=== PATIENT | male | born 1955 | race Caucasian/White ===

== ENCOUNTER 2020-12-22 08:49 | Outpatient (REF) | payer MEDICARE, SELFPAY ==
--- NOTE | ~2020-12-22 | US_ITS ---
EXAMINATION: US ABDOMEN COMPLETE CLINICAL INFORMATION: Right upper quadrant pain. COMPARISON: None TECHNIQUE: Real-time imaging of the abdominal viscera. FINDINGS: PANCREAS: Normal. ABDOMINAL AORTA: The proximal, mid, and distal segments are normal in caliber. INFERIOR VENA CAVA: Visualized portions are normal. LIVER: Normal. The liver is normal in size. The liver contour is normal. Parenchymal echogenicity is normal. No focal hepatic lesion. There is no intrahepatic biliary duct dilatation seen. GALLBLADDER: Gallbladder wall thickness is 0.27 cm. The gallbladder is physiologically distended without evidence of stones, sludge, polyps, wall thickening or pericholecystic fluid. COMMON BILE DUCT: Normal in caliber measuring 0.4 cm in diameter. RIGHT KIDNEY: Normal. No hydronephrosis. No renal calculi or focal parenchymal lesions. The kidney measures 10 point cm in maximum dimension. LEFT KIDNEY: Normal. No hydronephrosis. No renal calculi or focal parenchymal lesions. The kidney measures 10.3 cm in maximum dimension. SPLEEN: Normal. The spleen measures 10.5 cm in maximum dimension. FREE FLUID: None. US/US abdomen complete IMPRESSION: Unremarkable ultrasound abdomen complete
== END 2020-12-22 08:50 | disposition home or self-care (01) ==
LOC: HO.US 08:49
PROVIDERS: PCP Registered Nurse; Visit Provider Registered Nurse
DX: R10.11 Right upper quadrant pain (principal); R10.9 Unspecified abdominal pain; R19.5 Other fecal abnormalities
CPT/HCPCS: 76700

== ENCOUNTER → 2021-10-12 09:47 | Outpatient (BNVA) | payer MEDICARE, SELFPAY | PROVIDERS: PCP Registered Nurse; Referring Provider Registered Nurse; Visit Provider Surgery | DX: Z12.11 Encounter for screening for malignant neoplasm of colon (principal) | CPT/HCPCS: 99202 ==

== ENCOUNTER 2021-11-20 06:19 | Day surgery (SDC) | payer MEDICARE, SELFPAY ==
[2021-11-11 15:01] VITALS: BMI 21.7
--- NOTE | 2021-11-19 13:02 | HO.ANESPROP2 ---
Documented by User: Callie Singh NP 11/19/21 13:03 HPI - Anesthesia Eval Consult details Narrative: 65yo M for Colonoscopy, Poss Polypectomy PMFSH Active Problems Active Problems: All Active Problems (Updated 11/11/21 @ 15:00 by Concepción Casas, RN) Colon cancer screening (Acute) Past Medical History Medical History Colon cancer screening GERD (gastroesophageal reflux disease) H/O urinary frequency Family History Family History Father Prostate cancer Sister Liver cancer Surgical History Surgical History Hx of colonoscopy Social History Social History Alcohol intake: current Alcohol intake frequency: holidays/special occasions only Patient Tobacco Use Status: Never used Tobacco Use of substances other than those prescribed or required for medical reasons: No Are you DNR?: No Advance Directives: No Advance Directives Information Provided: Yes Advance Directives on File: No Poor oral hygiene: No Meds Allergies Allergy/AdvReac Type Severity Reaction Status Date / Time No Known Allergies Allergy Verified 11/11/21 15:01 Home Medications Medication Instructions Recorded Confirmed Last Taken Type fluticasone propionate 50 1 spray INTRANASAL BID 10/12/21 11/11/21 Unknown History mcg/actuation nasal spray,suspension multivitamin 1 tab PO DAILY 10/12/21 11/11/21 Unknown History omeprazole 20 mg capsule,delayed 20 mg PO DAILY 10/12/21 11/11/21 Unknown History release polyethylene glycol 3350 17 17 g PO DAILY 10/12/21 10/12/21 Unknown History gram/dose oral powder sennosides 8.6 mg tablet (Senna 17.2 mg PO DAILY PRN 10/12/21 10/12/21 Unknown History Laxative) tamsulosin 0.4 mg capsule 0.4 mg PO DAILY 10/12/21 11/11/21 Unknown History Exam Exam Date and Time: November 19, 2021 1302 Height,Weight and Vital Signs: Height 5 ft 3 in Weight 55.792 kg Assessment and Plan Assessment Anesthesia Assessment: Chart Reviewed Documented by User: Addie Xie MD 11/20/21 08:43 PMF Past Medical History Medical History Colon cancer screening GERD (gastroesophageal reflux disease) H/O urinary frequency Family History Family History Father Prostate cancer Sister Liver cancer Surgical History Surgical History Hx of colonoscopy History of Problems with Anesthesia: No Social History Social History Alcohol intake: current Alcohol intake frequency: holidays/special occasions only Patient Tobacco Use Status: Never used Tobacco Use of substances other than those prescribed or required for medical reasons: No Are you DNR?: No Advance Directives: No Advance Directives Information Provided: Yes Advance Directives on File: No Poor oral hygiene: No Meds Allergies Allergy/AdvReac Type Severity Reaction Status Date / Time No Known Allergies Allergy Verified 11/11/21 15:01 Home Medications Medication Instructions Recorded Confirmed Last Taken Type fluticasone propionate 50 1 spray INTRANASAL BID 10/12/21 11/11/21 Unknown History mcg/actuation nasal spray,suspension multivitamin 1 tab PO DAILY 10/12/21 11/11/21 Unknown History omeprazole 20 mg capsule,delayed 20 mg PO DAILY 10/12/21 11/11/21 Unknown History release polyethylene glycol 3350 17 17 g PO DAILY 10/12/21 10/12/21 Unknown History gram/dose oral powder sennosides 8.6 mg tablet (Senna 17.2 mg PO DAILY PRN 10/12/21 10/12/21 Unknown History Laxative) tamsulosin 0.4 mg capsule 0.4 mg PO DAILY 10/12/21 11/11/21 Unknown History Exam Airway Mallampati Class: II Neck ROM: Full Loose/Missing/Broken Teeth: No Heart: RRR Lungs: CTA Assessment and Plan Assessment Anesthesia Assessment: Anesthesia Plan Discussed Final Anesthetic Review History of Problems with Anesthesia: No NPO: Yes ASA Class: II Final Preanesthetic Review: Meds/Allgs Chart Reviewed, Consent Obtained/Reviewed and Anes Risks/Benef Reviewed Patient Risk: Low Procedure Risk: Low Anesthetic Plan Anesthetic Plan: MAC: Disposition: Standard PACU
[2021-11-20 07:11] VITALS: BP 119/68; PULSE 69; RESP 16; TEMP 36.5; O2SAT 97
[2021-11-20] MEDS: Lactated Ringers 1,000 ML 100 ML IVCONT (07:19)
--- NOTE | 2021-11-20 07:26 | MHC.SHP ---
Pre-Procedural Eval Section A Date of Service: 11/20/21 Section B Chief Complaint: Screening Details of Present Illness: last colonoscopy was in 2009, no GI complaints Relevant Family History (Specify if Yes): No Relevant Social History: None Present Medications: see Short Stay Collaborative assessment Medical History: Significant History ( BPH, GERD) History of Previous Operations: Relevant previous surgery/procedure and date(s) Allergies: Allergies Allergy/AdvReac Type Severity Reaction Status Date / Time No Known Allergies Allergy Verified 11/11/21 15:01 Review of Systems Sugical H&P ROS: Negative: Constitution, Cardiovascular, Respiratory, Neurological, Psychiatric, Hem-Onc, Allergic/Immunologic, Gastrointestinal, Genitourinary, Musculoskeletal, Integumentary, Endocrine and Eyes/Ears/Nose/Throat Exam Surgical H&P Exam: Normal: HEENT, Normal: Heart, Normal: Lungs, Normal: Extremities, Normal: Abdomen, Normal: Skin and Normal: Neurological Plan I have reviewed the history and physical and performed a pertinent physical examination on my patient. No changes have occurred unless specified.
--- NOTE | 2021-11-20 09:07 | W.PM.OPN ---
Operative Note Operative Note Date of Service: 11/20/21 Narrative: Preop diagnosis: Colon cancer screening Postop diagnosis: 1. moderate to severe diverticulosis, sigmoid and left colon 2. Multiple mucosal tears in the right colon along with erythema 3. suboptimal bowel prep surgeon: Bj Yañez MD The patient is a 65-year-old male referred for screening colonoscopy. He had his colonoscopy in 2009. He describes some chronic left-sided lower abdominal pain. He understood the technique of colonoscopy is also risks, benefits, and alternatives He was brought to the operating room placed in left lateral decubitus position under monitored anesthesia care. A full digital rectal was done. There were no palpable anal lesions. The tip of the Olympus was gently introduced through the anal orifice this and advanced with insufflation all the way to the cecum. We had a little bit of difficulty traversing the sigmoid because of severe diverticulosis. Onve we reached the right colon I noted linear mucosal tears diffusely with some erythema. We were able to reach the cecum. This was examined carefully. There were no lesions seen. This was identified via visualization of the ileocecal valve and the appendiceal orifice. The cecal mucosa was unremarkable so we proceeded to continue with the scope with careful examination of the the rest of the colonic mucosa being done with scope withdrawal. We did random biopsies of the right colon in view of the presence of erythema and official mucosal and tears. It is noted that these were already sent even before us reaching the colon itself. We continued to withdrawal the scope with careful examination of the entire colonic mucosa. Patient had suboptimal bowel prep with note of significant amounts of thick turbid stool throughout the colon. It was unlikely that any large lesion may have been missed Again there was note of heavy diverticulosis in the sigmoid in the left colon The rectum was reached and there were no lesions seen. The anal canal was unremarkable. The scope was then withdrawn completely. The patient tolerated The procedure well. There were no complication noted. In view of his suboptimal bowel prep as well as pending on his path report, I would recommend another colonoscopyin the next 1-2 years.
[2021-11-20 09:12] VITALS: BP 116/71; PULSE 77; RESP 18; TEMP 36.2; O2SAT 95
[2021-11-20 09:27] VITALS: BP 132/72; PULSE 80; RESP 16; TEMP 36.2; O2SAT 98
== END 2021-11-20 09:56 | disposition home or self-care (01) ==
PROVIDERS: PCP Internal Medicine; Visit Provider Surgery
PROC: 0DJD8ZZ Inspection of Lower Intestinal Tract, Via Natural or Artificial Opening Endoscopic (ICD-10-PCS; CPT 45378; principal; 2021-11-20 08:20)
DX: Z12.11 Encounter for screening for malignant neoplasm of colon (principal); K57.30 Diverticulosis of large intestine without perforation or abscess without bleeding; K52.9 Noninfective gastroenteritis and colitis, unspecified; K21.9 Gastro-esophageal reflux disease without esophagitis; Z79.899 Other long term (current) drug therapy
CPT/HCPCS: 45380; 88305; J2405

== ENCOUNTER 2022-02-23 13:26 | Outpatient (AMB) | payer MEDICARE, SELFPAY ==
--- NOTE | 2022-02-23 13:45 | A.OFFVIS_ITS ---
Intake Intake Visit Reasons: BPH was DrYarely Morales Patient Allergies No Known Allergies Allergy (Verified 02/23/23 13:22) HPI HPI Comments History of Present Illness Details Charlie is a pleasant male. He is a patient of Dr.Vergel Burton. He seen for the following urologic conditions - lower urinary tract symptoms Lower urinary tract symptoms PVR 0 cc Current therapy tamsulosin Primary symptoms of nocturia with weakness of stream PSA 08/03 1.1 Continue surveillance PFSH Medical History Colon cancer screening GERD (gastroesophageal reflux disease) H/O urinary frequency Rectal bleeding Surgical History History of prostate surgery Hx of colonoscopy Family History Father Prostate cancer Sister Liver cancer Social History Alcohol intake: current Alcohol intake frequency: holidays/special occasions only Patient Tobacco Use Status: Never used Tobacco Review of Systems Const Denies chills and Denies fever(s) Card Reports no additional complaints and Denies syncope Resp Denies cough GI Denies abdominal pain and Denies heartburn Reports as per HPI and Denies change in libido Neuro Denies syncope Psych Denies change in libido Endo Denies change in libido Physical Exam Const General: cooperative, healthy appearing, comfortable and no acute distress Orientation/consciousness: patient oriented x3 HEENT Face and sinus: Yes normal facial exam Mouth: moist mucous membranes Neck Neck: Yes normal visual inspection, Yes full ROM and Yes trachea midline Chest Chest palpation & inspection: normal inspection of the chest Resp Effort & Inspection: normal respiratory effort, able to speak in complete sentences and no respiratory distress GI Inspection: Yes normal to inspection Back/Spine/Pelvis Cervical Spine: normal cervical lordosis Thoracic/Lumbar Spine: thoracic and lumbar spine normal to inspection Skin General skin exam: no rashes or lesions noted Neuro General: patient oriented x3, gait normal, tone normal and moves all extremities Extrem General: Yes normal to inspection and Yes capillary refill normal Office Procedures Post Void Residual Post Residual Void Post Void Residual (PVR): 0 60154-Figm Void Residual by ultrasound Assessment & Plan Assessment & Plan (1) Nocturia more than twice per night: Code(s): R35.1 - Nocturia (2) BPH w urinary obs/LUTS: Code(s): N40.1 - Benign prostatic hyperplasia with lower urinary tract symptoms; N13.8 - Other obstructive and reflux uropathy Plan Twelve month follow-up Orders: Orders AMB Post Void Residual by ultrasound 02/23/22 N40.0 - Benign prostatic hyperplasia without lower urinary tract symptoms AMB Urinalysis Automated 02/23/22 Z13.9 - Encounter for screening, unspecified Patient Instructions: Imaging studies, laboratory and physical exam results were discussed and reviewed in detail. No major barriers to patient understanding were identified. An opportunity to ask questions regarding the treatment plan was provided. All questions were answered. The patient expressed understanding and agreement with the above treatment plan. The patient is aware they should contact our office by phone for worsening of their current condition or the appearance of new urologic symptoms. Compliance is encouraged with any medications and followup testing that is ordered. It is a privilege to participate in the urologic care of your patient. If you have any questions or concerns regarding treatment for the above conditions, or other urologic issues, please do not hesitate to contact me. The office telephone contact is [phone]. This note is constructed using voice recognition software. While every effort has been made to ensure accuracy university administrative assistant errors may have been included. Yours sincerely, Dr Ryan Simeon MD, [facility] - Urology Providers of Expert, Compassionate Care for the Genitourinary System Coding Level of Care Code Est Pt Level 4 (37861) Diagnoses Nocturia more than twice per night R35.1 BPH w urinary obs/LUTS N40.1; N13.8 CPT Codes Post Residual Void - PVR CPT Code: 16428-Etsl Void Residual by ultrasound ([id number])
== END 2022-02-23 14:34 | disposition home or self-care (01) ==
PROVIDERS: PCP Nurse Practitioner; Visit Provider Urology
DX: N40.1 Benign prostatic hyperplasia with lower urinary tract symptoms (principal); R35.1 Nocturia; N13.8 Other obstructive and reflux uropathy
CPT/HCPCS: 99499

== ENCOUNTER → 2022-02-23 13:26 | Outpatient (BNVA) | payer MEDICARE, SELFPAY | PROVIDERS: PCP Nurse Practitioner; Visit Provider Urology | DX: Z13.89 Encounter for screening for other disorder (principal) | CPT/HCPCS: 51798 ==

== ENCOUNTER 2022-10-12 10:27 | Outpatient (REF) | payer MEDICARE, SELFPAY ==
--- NOTE | ~2022-10-12 | CT_ITS ---
EXAMINATION: CT ABDOMEN AND PELVIS WITH CONTRAST CLINICAL INFORMATION: Left lower quadrant pain/hemorrhage of the anus and rectum. COMPARISON: None TECHNIQUE: Multidetector volumetric images were obtained from the superior aspect of the liver through the pubic symphysis following administration 85 mL of Omnipaque 350 intravenous contrast. Sagittal and coronal reformatted images were obtained on the technologist's workstation. Oral contrast: No This CT examination was performed using dose optimization techniques as appropriate, variously including the following: *Automated exposure control *Adjustment of mA and/or kV according to patient size (this includes techniques or standardized protocols for targeted exams where dose is matched to indication/reason for exam; i.e. extremities or head) *Use of iterative reconstruction technique DLP: 208 mGy-cm FINDINGS: LUNG BASES: The visualized lung bases are unremarkable. LIVER, GALLBLADDER, AND BILIARY TREE: The liver is normal in size, shape, and attenuation. No focal hepatic lesion or biliary ductal dilatation is present. There is a large dependent 8 mm gallstone without wall thickening. The gallbladder is contracted. PANCREAS: Unremarkable. SPLEEN: Unremarkable. ADRENAL GLANDS: Unremarkable. KIDNEYS AND URETERS: The kidneys are normal in size, shape, and attenuation. No hydronephrosis, hydroureter, or calculi are seen. No perinephric stranding. BLADDER: Unremarkable. GASTROINTESTINAL TRACT: There is scattered oral contrast, diverticula and stool seen throughout the colon without distention. There is diffuse mural thickening involving the sigmoid colon without pericolic fat stranding. The cecum is mobile and lies in the right mid abdomen. Appendix is not seen. The small bowel loops are normal caliber without distention. ABDOMINAL WALL: No significant hernia is appreciated. LYMPH NODES: Normal. VASCULAR: Unremarkable. PELVIC VISCERA: There is no free air or free fluid. OSSEOUS STRUCTURES: Mild degenerative disc changes at the L5-S1 disc level are noted. No lytic or sclerotic process seen. CT/CT abdomen pelvis w IV con IMPRESSION: Diffuse colonic diverticulosis. There is mild mural thickening involving a short segment of the sigmoid colon but no pericolic fat stranding. Findings are suspicious for inflammatory bowel disease. Differential diagnosis includes underlying colonic lesion, however considered less likely Cholelithiasis without wall thickening. Fleischner guidelines were followed.
[2022-10-12] MEDS: Barium Sulfate Oral (Berry) 450 ML ORAL.SUSP 900 ML PO (12:38)
[2022-10-12] MEDS: iohexoL 350 MG/ML 100 ML INFUS..BTL IV (12:39)
[2022-10-13 06:59] LABS: Creatinine POC 0.6 mg/dL (0.5-1.4); GFR POC > 60
== END 2022-10-12 10:28 | disposition home or self-care (01) ==
LOC: HO.CT 10:27
PROVIDERS: PCP Emergency Medicine; Visit Provider Emergency Medicine
DX: K62.5 Hemorrhage of anus and rectum (principal); R10.32 Left lower quadrant pain; Z87.19 Personal history of other diseases of the digestive system
CPT/HCPCS: 74177; 82565; Q9967

== ENCOUNTER → 2022-11-03 08:05 | Outpatient (BNVA) | payer MEDICARE, SELFPAY | PROVIDERS: Visit Provider Surgery | DX: K62.5 Hemorrhage of anus and rectum (principal); K64.8 Other hemorrhoids; K64.4 Residual hemorrhoidal skin tags | CPT/HCPCS: 46600; 99212 ==

== ENCOUNTER 2022-12-21 05:41 | Day surgery (SDC) | payer MEDICARE, SELFPAY ==
[2022-12-14 14:48] VITALS: BMI 21.7
[2022-12-21 06:28] VITALS: BP 148/77; PULSE 88; RESP 16; TEMP 36.6; O2SAT 97
--- NOTE | 2022-12-21 07:11 | MHC.SHP ---
Pre-Procedural Eval Section A Date of Service: 12/21/22 Section B Chief Complaint: Hemorrhage of anus and rectum Details of Present Illness: periodic passage of blood per rectum, poor bowel prep on colonoscopy lasty Nov 2021 Relevant Family History (Specify if Yes): No Relevant Social History: None Present Medications: see Short Stay Collaborative assessment Medical History: Significant History (BPH) Allergies: Allergies Allergy/AdvReac Type Severity Reaction Status Date / Time No Known Allergies Allergy Verified 11/11/21 15:01 Review of Systems Sugical H&P ROS: Negative: Constitution, Cardiovascular, Respiratory, Neurological, Psychiatric, Hem-Onc, Allergic/Immunologic, Genitourinary, Musculoskeletal, Integumentary, Endocrine and Eyes/Ears/Nose/Throat and Yes, Specify: Gastrointestinal (blood per rectum) Exam Surgical H&P Exam: Normal: HEENT, Normal: Heart, Normal: Lungs, Normal: Extremities, Normal: Abdomen, Normal: Skin and Normal: Neurological Plan Diagnosis/Plan: Unchanged I have reviewed the history and physical and performed a pertinent physical examination on my patient. No changes have occurred unless specified. Time Spent With Patient Time: Total time managing care of this patient today ____ minutes.
--- NOTE | 2022-12-21 07:24 | HO.ANESPROP2 ---
HPI - Anesthesia Eval Consult details Narrative: colonoscopy PMFSH Active Problems Active Problems: All Active Problems (Updated 11/03/22 @ 09:17 by Bj Yañez MD) BPH w urinary obs/LUTS (Acute) Nocturia more than twice per night (Acute) Rectal bleeding (Acute) Colon cancer screening (Acute) Past Medical History Medical History (Updated 11/03/22 @ 09:17 by Bj Yañez MD) Colon cancer screening GERD (gastroesophageal reflux disease) H/O urinary frequency Rectal bleeding Family History Family History Father Prostate cancer Sister Liver cancer Family history of problems with anesthesia: No Surgical History Surgical History (Updated 12/14/22 @ 14:35 by Consuelo Steele RN) History of prostate surgery Hx of colonoscopy History of Problems with Anesthesia: No Social History Social History Alcohol intake: current Alcohol intake frequency: holidays/special occasions only Patient Tobacco Use Status: Never used Tobacco Use of substances other than those prescribed or required for medical reasons: No Have you been hit, kicked, punched, or otherwise hurt by someone within the past year? If so, by whom?: No Are you DNR?: No Advance Directives: No Advance Directives Information Provided: Yes Advance Directives on File: No Eating poorly because of decreased appetite: No Nutrition Risks: No Nutritional Risk Poor oral hygiene: No Meds Allergies Allergy/AdvReac Type Severity Reaction Status Date / Time No Known Allergies Allergy Verified 11/11/21 15:01 Active Medications: Current Medications Lactated Ringer's (Lr) 1,000 mls @ 80 mls/hr IVCONT .[id number] [facility] Home Medications Medication Instructions Recorded Confirmed Last Taken Type fluticasone propionate 50 1 spray intranasal BID 10/12/21 12/14/22 Unknown History mcg/actuation nasal spray,suspension multivitamin 1 tab PO DAILY 10/12/21 12/14/22 Unknown History omeprazole 20 mg capsule,delayed 20 mg PO DAILY 10/12/21 12/14/22 Unknown History release sennosides 8.6 mg tablet (Senna 17.2 mg PO DAILY PRN constipation 10/12/21 12/14/22 Unknown History Laxative) tamsulosin 0.4 mg capsule 0.4 mg PO DAILY 10/12/21 12/14/22 Unknown History Exam Exam Date and Time: December 21, 2022 0724 Height,Weight and Vital Signs: Height 5 ft 3 in Weight 55.508 kg Last Vital Signs Temp 97.9 F 12/21/22 06:28 Pulse 88 12/21/22 06:28 Resp 16 12/21/22 06:28 BP 148/77 H 12/21/22 06:28 Pulse Ox 97 12/21/22 06:28 O2 Del Method 12/21/22 06:28 Airway Mallampati Class: II TM Dist: >3cm Neck ROM: Full Heart: ok Lungs: ok Assessment and Plan Assessment Anesthesia Assessment: Anesthesia Plan Discussed and Chart Reviewed Final Anesthetic Review Family History of Problems with Anesthesia: No History of Problems with Anesthesia: No NPO: Yes ASA Class: II Final Preanesthetic Review: No Changes in Pt Med Stat, Meds/Allgs Chart Reviewed, Consent Obtained/Reviewed and Anes Risks/Benef Reviewed Patient Risk: Low Procedure Risk: Low Anesthetic Plan Anesthetic Plan: MAC: and Agree w/ Assess. and Plan Disposition: Standard PACU
--- NOTE | 2022-12-21 08:01 | W.PM.OPN ---
Operative Note Operative Note Date of Service: 12/21/22 Narrative: Preop diagnosis: Colon cancer screening Postop diagnosis: 1. Flat polyp at level 30 cm, about 1 cm in size removed with cold forceps 2. Sigmoid diverticulosis, moderate 3. Internal external hemorrhoids Procedure: Colonoscopy with polypectomy using cold forceps Surgeon: Bj Yañez MD The patient is a 67-year-old male who had a previous colonoscopy a year ago poor bowel prep. I had recommended for him to undergo a repeat colonoscopy in view of this. He understood the technique of the procedure. He was aware of the risks, benefits, and alternatives. He did state that he had some passive small amounts of bright blood per rectum in the past but he has not noticed this for several months. The patient was brought to the operating room and placed in left lateral decubitus position under monitored anesthesia care. A surgical time-out was done. A full digital rectal exam was done and this did not reveal any significant anal lesions. The tip of the Olympus colonoscope was gently introduced through the anal orifice advanced with insufflation all the way to the cecum. The cecum was intubated. The cecum was identified by visualization of the ileocecal valve as well as the appendiceal orifice. The cecal mucosa was unremarkable. The scope was gradually withdrawn with careful examination of the entire colonic mucosa being done with scope withdrawal. The patient had adequate bowel prep so it was unlikely that any lesion may have been missed. At level of 30 cm, there was note of a flat polyp, about 1 cm in diameter, removed the multiple bites of a cold forceps. There was note of moderate sigmoid diverticulosis. The rectum was reached and there were no lesions seen. The anal canal was unremarkable except for internal ex hemorrhoids. The scope was then withdrawn completely with desufflation The patient tolerated the procedure well. There were no immediate complications. Depending on the path report for his flat polyp, I would probably recommend a short term interval for his next colonoscopy in the next 2-3 years.
[2022-12-21 08:10] VITALS: BP 106/54; PULSE 81; RESP 20; TEMP 36.2; O2SAT 97
[2022-12-21 08:25] VITALS: BP 115/56; PULSE 73; RESP 18; O2SAT 98
[2022-12-21 08:36] VITALS: BP 120/81; PULSE 68; RESP 18; TEMP 36.1; O2SAT 100
--- NOTE | 2022-12-21 09:10 | PC.NURSE ---
oscar from special events assistant services present for discharge instructions.
== END 2022-12-21 09:12 | disposition home or self-care (01) ==
PROVIDERS: PCP Emergency Medicine; Visit Provider Surgery
PROC: 0DJD8ZZ Inspection of Lower Intestinal Tract, Via Natural or Artificial Opening Endoscopic (ICD-10-PCS; CPT 45378; principal; 2022-12-21 07:30)
DX: K62.5 Hemorrhage of anus and rectum (principal); D12.5 Benign neoplasm of sigmoid colon; K57.30 Diverticulosis of large intestine without perforation or abscess without bleeding; K64.8 Other hemorrhoids; K64.4 Residual hemorrhoidal skin tags; K59.00 Constipation, unspecified; K21.9 Gastro-esophageal reflux disease without esophagitis; Z79.51 Long term (current) use of inhaled steroids; Z79.899 Other long term (current) drug therapy
CPT/HCPCS: 45380; 45381; 88305

== ENCOUNTER → 2023-02-23 13:08 | Outpatient (BNVA) | payer MEDICARE, SELFPAY | PROVIDERS: PCP Emergency Medicine; Visit Provider Urology | DX: N40.1 Benign prostatic hyperplasia with lower urinary tract symptoms (principal); N13.8 Other obstructive and reflux uropathy; R35.1 Nocturia; Z79.899 Other long term (current) drug therapy | CPT/HCPCS: 51798; 99212 ==

== ENCOUNTER → 2023-03-31 12:35 | Outpatient (REF) | payer MEDICARE, SELFPAY ==
--- NOTE | 2023-03-31 12:40 | HM_ITS ---
Conclusion: 1. Patient was monitored for total period of 23 hours 2. Baseline was normal sinus rhythm with average heart rate of 78 beats per minute 3. Rare PACs noted 4. No significant pauses or bradycardia noted 5. No patient reported events MTDD
== END ==
LOC: HO.CARD 12:35
PROVIDERS: PCP Emergency Medicine; Visit Provider Registered Nurse
DX: R00.2 Palpitations (principal)
CPT/HCPCS: 93225

== ENCOUNTER 2023-04-28 12:39 | Outpatient (REF) | payer MEDICARE, SELFPAY ==
--- NOTE | ~2023-04-28 | XR_ITS ---
EXAMINATION: XR SHOULDER, RIGHT CLINICAL INFORMATION: Right shoulder pain for 5 months. No injury. COMPARISON: None available. TECHNIQUE: Four views of the right shoulder. FINDINGS: The bones and soft tissues appear unremarkable. No fracture appreciated. Glenohumeral and acromioclavicular alignment appears anatomic, with normal-appearing joint space. No abnormal soft tissue calcifications. XR/XR shoulder RT min 2V IMPRESSION: Normal plain film examination of the right shoulder.
--- NOTE | ~2023-04-28 | XR_ITS ---
EXAMINATION: XR SHOULDER, LEFT CLINICAL INFORMATION: Left shoulder pain for 5 months. No injury. COMPARISON: None available. TECHNIQUE: Four views of the left shoulder. FINDINGS: The bones and soft tissues appear unremarkable. No fracture appreciated. Glenohumeral and acromioclavicular alignment appears anatomic, with normal-appearing joint space. No abnormal soft tissue calcifications. XR/XR shoulder LT min 2V IMPRESSION: Normal plain film examination of the left shoulder.
== END 2023-04-28 12:40 | disposition home or self-care (01) ==
LOC: HO.HHCX 12:39
PROVIDERS: Visit Provider Registered Nurse
DX: M25.511 Pain in right shoulder (principal); M25.512 Pain in left shoulder; G89.29 Other chronic pain
CPT/HCPCS: 73030

== ENCOUNTER 2023-07-12 15:00 | Outpatient (RCR) | payer MEDICARE, SELFPAY ==
--- NOTE | 2023-06-14 18:24 | MHC.PT.EP ---
[facility] [place] Office [place] Office [place] Office [address] Antolin Baig [address] [phone] F: [phone] F: [phone] F: [phone] F: [phone] Physical Therapy Plan of Care Date of Evaluation: Date of Surgery: Diagnosis: bilateral shoulder pain (MD Dx) bilateral shoulder subacromial impingement syndrome (PT Dx) Assessment: Patient is a pleasant, German speaking 67 y.o. male who is referred to PT by HAMILTON Abbasi with Dx of bilateral shoulder pain. PT diagnosis is bilateral shoulder subacromial impingement syndrome due to poor postures and shoulder girdle muscle imbalances. Patient impairments include poor posture, pain, weakness, limited AROM of shoulders. Patient current functional limitations are lying on R side to sleeping, dificulty reaching at times. Patient will benefit from skilled PT to address aforementioned impairments and functional limitations to meet established goals. Frequency and Duration: The patient will be seen 2x/week for 4 weeks Short Term Goals: 2 weeks Patient demonstrates consistency and independence with HEP to self manage symptoms. Patient is able to demonstrate self correction of poor posture without cuing. 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 Patient presents with increased R shoulder flexion strength 5/5 to be able to clean without sxs. Treatment Plan: Modalities to reduce pain, spasms and effusion. Manual therapy to restore motion and function. Therapeutic exercise to improve strength and flexibility. Neuromuscular re-education for posture and balance. Therapeutic activities to return to functional activities of daily living. Electronically signed by: Vandana Monsalve, PT, DPT Please sign and return to therapist. Thank you for your referral.
--- NOTE | 2023-07-12 15:46 | MHC.PT.DC ---
[facility] [place] Office [place] Office [place] Office [address] Antolin Baig 140 [facility] [phone] F: [phone] F: [phone] F: [phone] F: [phone] Physical Therapy Discharge Report Diagnosis: bilateral shoulder pain (MD Dx) bilateral shoulder subacromial impingement syndrome (PT Dx) Date of Surgery: Date of Evaluation: 06/14/23 Date of Discharge: 07/12/23 Treatments to Date: 7 Cancellations to Date: No Shows to Date: Discharge Status: Achieved Goals Improved Function Independent with HEP Discharge Summary: He presents with full AROM of bilateral shoulders with full strength that has significantly improved his function and SPADI score is 0 (no disability). 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 Electronically signed by: Vandana Monsalve, PT, DPT Please sign and return to therapist. Thank you for your referral.
== END 2023-07-12 15:46 | disposition home or self-care (01) ==
LOC: HO.PT 15:00
PROVIDERS: PCP Registered Nurse; Visit Provider Registered Nurse
DX: M25.511 Pain in right shoulder (principal); M25.512 Pain in left shoulder; G89.29 Other chronic pain
CPT/HCPCS: 97110; 97161; 97530

== ENCOUNTER 2024-09-18 11:52 | Outpatient (REF) | payer MEDICARE, SELFPAY ==
[2024-09-18 13:39] LABS: Hemoglobin 14.4 g/dl (14.0-18.0); Mean Corpuscular Hemoglobin 27.7 pg (27.0-33.0); Mean Corpuscular Volume 86.5 fL (80.0-98.0); Mean Platelet Volume 10.1 fL (9.4-12.4); Platelet Count 236 X10*3/uL (160-400); Red Cell Distribution Width 14.5 % (11.0-16.0); White Blood Count 7.7 X10*3/uL (4.8-10.8)
[2024-09-18 13:55] LABS: Estimated Average Glucose 108 mg/dL; Hemoglobin A1C 133.0311 umol/L; Hemoglobin A1c % 5.4 % (<6.0); Total Hemoglobin (HGBA1C) 3715.3232 umol/L
[2024-09-18 14:16] LABS: Alanine Aminotransferase 13 U/L (0-40); Albumin Level 3.7 g/dL (3.5-5.0); Alkaline Phosphatase 95 U/L (39-117); Anion Gap 10 (12-20); Aspartate Amino Transferase 18 U/L (5-37); Bilirubin Total 0.4 mg/dL (0.0-1.0); Blood Urea Nitrogen 15 mg/dL (9-16); Calcium 9.2 mg/dL (8.4-10.2); Carbon Dioxide 27 mmol/L (22-29); Chloride 105 mmol/L (96-108); Cholesterol 181 mg/dL (<200); Estimated Glomerular Filt Rate > 60; Glucose Random 91 mg/dL (60-115); HDL Cholesterol 58 mg/dL (>40); LDL Cholesterol Calculated 109 mg/dL (<100); Potassium 4.3 mmol/L (3.3-5.1); Sodium 138 mmol/L (135-145); Total Protein 7.4 g/dL (6.5-8.0); Triglycerides 71 mg/dL (<150)
[2024-09-18 14:19] LABS: TSH reflex Free T4 0.78 uIU/mL (0.32-4.0)
[2024-09-18 17:18] LABS: CT PCR NOT DETECTED (Not Detect.); NG PCR NOT DETECTED (Not Detect.)
[2024-09-19 08:46] LABS: HBS Num1 208.33 mIU/mL (0-7.99); HBsAGNum1 0.31 S/CO (0.00-0.99); HIV AB/AG Nonreactive (Nonreactive); HIV Num 1 0.06 S/CO (0.00-0.99); Hepatitis B Core Antibody Nonreactive (Nonreactive); Hepatitis B Surface Antigen Negative (Negative); ~HepC Num1 0.34 S/CO (0.00-0.79); ~Hepatitis B Surface Antibody REACTIVE (Nonreactive); ~Hepatitis C Antibody Nonreactive (Nonreactive)
[2024-09-19 09:13] LABS: Syphilis Screen Nonreactive (Nonreactive)
== END 2024-09-18 11:53 | disposition home or self-care (01) ==
LOC: HO.HHCL 11:52
PROVIDERS: Visit Provider Student in an Organized Health Care Education/Training Program
DX: E78.2 Mixed hyperlipidemia (principal); Z11.3 Encounter for screening for infections with a predominantly sexual mode of transmission; Z12.5 Encounter for screening for malignant neoplasm of prostate; K59.00 Constipation, unspecified; Z13.1 Encounter for screening for diabetes mellitus
CPT/HCPCS: 80053; 80061; 83036; 84153; 84443; 85027; 86704; 86706; 86780; 86803; 87340; 87389; 87491; 87591

== ENCOUNTER 2024-10-04 07:55 | Outpatient (REF) | payer MEDICARE, SELFPAY | END 2024-10-04 07:56 | disposition home or self-care (01) | LOC: HO.US 07:55 | PROVIDERS: PCP Registered Nurse; Visit Provider Student in an Organized Health Care Education/Training Program | DX: K80.20 Calculus of gallbladder without cholecystitis without obstruction (principal) | CPT/HCPCS: 76700 ==

== ENCOUNTER 2024-11-19 09:24 | Outpatient (AMB) | payer MEDICARE, SELFPAY ==
--- NOTE | 2024-11-19 09:36 | MHC.OFFVIS ---
Vital Signs 11/19/24 09:42 Height 5 ft 3 in Weight 131 lb BMI 23.2 BP 129/63 Blood Pressure Location Rt brachial Position Sitting Pulse 77 Intake Visit Reasons: Abnormal US Gallbladder Intake Note: Patient referred by pcp Misty Guerrero NP for abnormal abdomen US dated 10-04-2024. Patient c/o: denies nausea, diarrhea. Reports taking colace to help with constipation. 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 Otherwise has regular bowel habits. He had a workup for this including sonogram demonstrated significant cholelithiasis. Chart was reviewed and patient evaluated [facility] Medical History Rectal bleeding GERD (gastroesophageal reflux disease) H/O urinary frequency Colon cancer screening Surgical History History of prostate surgery Hx of colonoscopy Family History Father Prostate cancer Sister Liver cancer Social History Alcohol intake: current Alcohol intake frequency: holidays/special occasions only Patient Tobacco Use Status: Never used Tobacco Physical Exam Vital Signs: Last Vital Signs Pulse 77 11/19/24 09:42 BP 129/63 11/19/24 09:42 BMI result Body Mass Index 23.2 Chest Other: Chest breath sounds bilaterally, HS 1 in 2 GI Other: Abdomen is soft, benign. Assessment & Plan Assessment & Plan (1) Symptomatic cholelithiasis: Code(s): K80.20 - Calculus of gallbladder without cholecystitis without obstruction Category: Surgical (2) Recurrent biliary colic: Code(s): K80.50 - Calculus of bile duct without cholangitis or cholecystitis without obstruction Category: Surgical Plan Risks, benefits, alternatives laparoscopic possible open cholecystectomy reviewed with the patient and included but not limited to bleeding, infection, recurrence of symptoms, numbness, pain, scarring, bowel or bile duct injury or leak and the patient wishes to proceed. All questions answered. Arrangements will be made on day which is convenient for him. Coding Level of Care Code New Pt Level 5 (56446) Diagnoses Symptomatic cholelithiasis K80.20 Recurrent biliary colic K80.50
[2024-11-19 09:42] VITALS: BP 129/63; PULSE 77; BMI 23.2
== END 2024-11-19 09:52 | disposition home or self-care (01) ==
PROVIDERS: PCP Registered Nurse; Visit Provider Surgery
DX: K80.20 Calculus of gallbladder without cholecystitis without obstruction (principal); K80.50 Calculus of bile duct without cholangitis or cholecystitis without obstruction
CPT/HCPCS: 99204

== ENCOUNTER → 2024-11-19 09:24 | Outpatient (BNVA) | payer MEDICARE, SELFPAY | PROVIDERS: PCP Registered Nurse; Visit Provider Surgery | DX: K80.20 Calculus of gallbladder without cholecystitis without obstruction (principal); K80.50 Calculus of bile duct without cholangitis or cholecystitis without obstruction | CPT/HCPCS: 99202 ==

== ENCOUNTER → 2024-12-13 05:37 | Outpatient (BNV) | payer MEDICARE, SELFPAY | PROVIDERS: PCP Registered Nurse; Visit Provider Surgery | DX: K80.10 Calculus of gallbladder with chronic cholecystitis without obstruction (principal) | CPT/HCPCS: 47562 ==

== ENCOUNTER 2024-12-24 08:37 | Outpatient (AMB) | payer MEDICARE, SELFPAY ==
--- NOTE | 2024-12-24 08:40 | MHC.OFFVIS ---
Intake Visit Reasons: S/P lap elmer Intake Note: Patient here s/p laparoscopic cholecystectomy. Reports incision healing well. Patient c/o: no concerns. No longer taking rx pain meds. Surgery: 12-13-2024 Note: Patient due to 2yr colonoscopy. Appointment with Dr. Yañez scheduled for 01-03-25 @ 10am. Apt card provided. Web Designer Developer Required: No Accompanied by: Self / Same As Patient Allergies No Known Allergies Allergy (Verified 12/24/24 08:43) HPI Comments Details: Patient presents for follow-up. He is doing very well. He is tolerating a diet. Having regular bowel habits. He is increasing his activity level. He has no incisional issues or complaints. [facility] Medical History Rectal bleeding GERD (gastroesophageal reflux disease) H/O urinary frequency Colon cancer screening Surgical History History of prostate surgery Hx of colonoscopy Family History Father Prostate cancer Sister Liver cancer Social History Alcohol intake: current Alcohol intake frequency: holidays/special occasions only Patient Tobacco Use Status: Never used Tobacco Physical Exam Eyes Other: Anicteric GI Other: Abdomen is soft, benign. All wounds clean dry and intact healing well Assessment & Plan Assessment & Plan (1) Status post laparoscopic cholecystectomy: Code(s): Z90.49 - Acquired absence of other specified parts of digestive tract Category: Medical Plan Patient was been given local instructions including avoiding strenuous activities next few weeks time and will otherwise follow-up p.r.n.. All questions answered. Coding Level of Care Code Global (96406) Diagnoses Status post laparoscopic cholecystectomy Z90.49
== END 2024-12-24 08:52 | disposition home or self-care (01) ==
PROVIDERS: PCP Registered Nurse; Visit Provider Surgery
DX: Z90.49 Acquired absence of other specified parts of digestive tract (principal)
CPT/HCPCS: 99024

== ENCOUNTER → 2024-12-24 08:37 | Outpatient (BNVA) | payer MEDICARE, SELFPAY | PROVIDERS: PCP Registered Nurse; Visit Provider Surgery | DX: Z09 Encounter for follow-up examination after completed treatment for conditions other than malignant neoplasm (principal); Z90.49 Acquired absence of other specified parts of digestive tract | CPT/HCPCS: 99212 ==

== ENCOUNTER 2025-01-03 09:13 | Outpatient (AMB) | payer MEDICARE, SELFPAY ==
--- NOTE | 2025-01-03 09:38 | MHC.OFFVIS ---
Vital Signs 01/03/25 09:43 Height 5 ft 3 in Weight 132 lb 8 oz BMI 23.5 Intake Visit Reasons: Colonoscopy recall Intake Note: This patient presents for Colonoscopy recall. Pt c/o; last colonoscopy 2 years ago 12/2022, no complaints at this time. Architecture Analyst Required: Yes Architecture Analyst Language: Orthopedic Nurse Practitioner Services: Architecture Analyst Present (Mere) Architecture Analyst Name: YvonneMaria Alejandra Information Interpreted: non-clinical & clinical Accompanied by: Self / Same As Patient Allergies No Known Allergies Allergy (Verified 01/03/25 09:44) Medication List - Last Reconciled 01/03/25 by Bj Yañez MD fluticasone propionate 50 mcg/actuation 1 spray intranasal BID multivitamin 1 tab PO DAILY peg 3350-electrolytes 236-22.74-6.74 -5.86 gram (Golytely) 240 mL PO Q10M rosuvastatin 10 mg PO DAILY sennosides (Senna Laxative) 17.2 mg PO DAILY PRN tamsulosin 0.4 mg PO BEDTIME 90 days HPI HPI Colonoscopy recall: Details: 69-year-old male here to schedule for a follow-up colonoscopy. I had done his colonoscopy 3 years ago. At that time, he had a suboptimal bowel prep. I had recommended repeating the colonoscopy in a short interval. He did have diverticulosis at that time as well as edema of the right colon. He currently denies significant GI complaints. He denies a family history of colon cancer. [facility] Medical History Rectal bleeding GERD (gastroesophageal reflux disease) H/O urinary frequency Colon cancer screening Surgical History History of prostate surgery Hx of colonoscopy Family History Father Prostate cancer Sister Liver cancer Social History Alcohol intake: current Alcohol intake frequency: holidays/special occasions only Patient Tobacco Use Status: Never used Tobacco Review of Systems Const Denies chills and Denies fever(s) Card Denies chest pain, Denies dyspnea and Denies dyspnea on exertion Resp Denies cough, Denies dyspnea and Denies dyspnea on exertion GI Denies hematochezia and Denies change in bowel habits Denies hematuria and Denies difficulty urinating Musc Denies back pain and Denies limited range of motion Neuro Denies focal weakness and Denies convulsions Psych Denies depression and Denies mood swings Physical Exam Vital Signs: BMI result Body Mass Index 23.5 Const General: comfortable and no acute distress Orientation/consciousness: patient oriented x3 Neck Neck: Yes no lymphadenopathy Resp Auscultation: clear to auscultation bilaterally Cardio Rhythm: regular rhythm GI Palpation (GI): Soft to palpation, nontender and no guarding Neuro General: patient oriented x3 Assessment & Plan Assessment & Plan (1) Colon cancer screening: Code(s): Z12.11 - Encounter for screening for malignant neoplasm of colon Category: Medical Plan: He had a suboptimal bowel prep in 2021 on colonoscopy. I recommended repeating the colonoscopy because of this poor bowel prep. I reviewed with him the technique of the procedure. I explained the risks including but not limited to bleeding perforation, as well as the benefits and alternatives. He understands and agrees to proceed. Coding Level of Care Code New Pt Level 3 (98308) Diagnoses Colon cancer screening Z12.11
[2025-01-03 09:43] VITALS: BMI 23.5
--- OUTSIDE RECORDS SUMMARY | 2025-01-03 09:57 | XMS_ITS | Encounter Summary ---
Author Organization [employer] Address [address] [place] [address] [address] [place] [address] Care Team Providers Care Roller Inspector And Mender Name Role Phone Deann Livingston MD Primary Care Pro vider Reason for Referral * Consultation (Urgent) - Closed Specialty Diagnoses / Procedures Referred By Contallie t Referred To Contact General Surgery Diagnoses Thickening of wall of gallbladder Calculus of gallbladder without cholecystitis without obstruction Sammie Hwang ANP [address] [place] [address] Phone: tel: fax: Ozzie Kuo MD [address] [place] [id number] Phone: tel: fax: Referral ID Status Reason Start Date Expiration Date V isits Requested Visits Authorized [id number] Closed Specialty Services Required 11/08/2024 11/08/2025 1 1 Reason for Visit * Reason Onset Date Comments Callback 11/08/2024 Encounter Details Date Type Department Care Team (Late st Contact Info) Description 11/08/2024 Telephone [facility] [address] [place], [place] [phone] Deann Livingston MD [address] [place], [place] [phone] Callback Social History Tobacco Use Types Packs/Day Years Used Date Smoking Tobacco: Never Smokeless Tobacco: Never Alcohol Use Standard Drinks/Week Comments Yes 2 (1 standard drink = 0.6 oz pur e alcohol) occasional Depression Answer Date Recorded Patient Health Questionnaire-9 Score 0 09/18/2024 Patient Health Questionnaire-9 Score 0 09/18/2024 Last PHQ-9: Questionnaire Data Not on file 1 11/18/2023 Housing Stability Answer Date Recorded What is your housing situation today? I have adelia baldwin 09/18/[address] you li ve. Do you have problems with any of the following? None of the above 09/18/2024 Food Insecurity Answer Date Recorded Within the past 12 months, y ou worried that your food would run out before you got money to buy more: Never True 09/18/2024 Within the past 12 months,th e food you bought just didn't last and you didn't have enough money to get more: Never True 03/2024 Transportation Answer Date Recorded In the past 12 months, has l ack of transportation kept you from medical appts, meetings, work or from getting things needed for daily living? No 09/18/2024 Utilities Answer Date Recorded In the past 12 months, has t he electric, gas, oil or water company threatened to shut off services in your home? No 09/18/2024 Depression Answer Date Recorded Patient Health Questionnaire-2 Score 0 09/18/2024 Internet Access Answer Date Recorded Internet Access Q1 No 09/18/2024 Internet Access Q2 I do not want or need it 03/2024 Sex and Gender Information Value Date Recorded Sex Assigned at Male 09/13/2022 10:19 AM EDT Legal Sex Male 10:19 AM EDT Gender Identity Male 09/13/2022 10:19 AM EDT Sexual Orientation Straight 09/13/2022 10 :19 AM EDT documented as of this encounter Miscellaneous Notes * Telephone Encounter - CRYSTAL Gannon - 12/11/2024 4:27 PM EST Referral placed to gen surg same DOS * Addendum Note - CRYSTAL Gannon - 11/08/2024 4:25 PM ESTAddended by: SAMMIE HWANG on: 11/08/2024 04:25 PM Modules accepted: Orders * Telephone Encounter - CRYSTAL Gannon - 11/08/2024 4:19 PM EST Please let pt know, US for gallbladder finally read and they are recommending he see a surgeon for consideration for removal of gallbladder - he has a few stones now and the wall of the gallbladder is thickened - will refer urgently. Please advise he call us if he has not heard about the referral in next 10d. * Telephone Encounter - Sury Michaels RN - 11/08/2024 1:28 PM EST Message forwarded to PCP PAQ covering provider for review. * Telephone Encounter - Mike Salcedo - 11/08/2024 11:10 AM EST Tc from S[place]ida with [facility] requesting a call back from Nurse or [place] to Discuss Ultra Sound that was done 10/04 of the Abdomen. Contact Soraida at [phone] Ext [phone] documented in this encounter Plan of Treatment Upcoming Encounters Date Type Department Care Team (Late st Contact Info) Description 02/22/2025 10:00 AM EDT Office Visit [facility] [address] [place] [id number] Deann Livingston MD [address] [place] [address] Scheduled Referrals Name Type Priority Associated Diagnoses Orde r Schedule Referral to General Surgery Outpatient Referral Urgent Thickening of wall of gallbladder Calculus of gallbladder without cholecystitis without obstruction Expected: 11/08/2024 (Approximate), Expires: 11/08/2025 documented as of this encounter Visit Diagnoses Diagnosis Thickening of wall of gallbladder- Primary Calculus of gallbladder without cholecystitis without obstruction documented in this encounter Additional Health Concerns Assessment Noted Time PHQ-9 Depression Total Score: 0 09/18/20 24 10:56 AM EST documented as of this encounter Care Teams Roller Inspector And Mender Relationship Specialty Start Date End Date Deann Livingston MD [address] [place] [phone] PCP - General Internal Medicine 08/23/23 documented as of this encounter
--- OUTSIDE RECORDS SUMMARY | 2025-01-03 09:57 | XMS_ITS | Clinical Summary ---
Author Organization [facility] ity Address [address] [place] [address] Care Team Providers Care Homebirth Midwife Name Role Phone Unavailable Primary Care Provider Unavailabl e Social History Tobacco Use Types Packs/Day Years Used Date Smoking Tobacco: Never Assessed Sex and Gender Information Value Date Recorded Sex Assigned at Not on file Legal Sex Male 4:51 AM EST Gender Identity Not on file Sexual Orientation Not on file Plan of Treatment Health Maintenance Due Date Last Done Comments DTaP,Tdap,and Td Vaccines (1 - Tdap) 1973 Pneumococcal Vaccine: 50+ Ye ars (1 of 1 - PCV) 2004 Zoster Vaccines (1 of 2) 2004 COVID-19 Vaccine ( - 2023-2 5 season) 2024 Influenza Vaccine (#1) 2024 RSV Immunization Patients 60 + Years Old (1 - 1-dose 75+ series) 2029 HIB Vaccines Aged Out No longer eligi ble based on patient's age to complete this topic HPV Vaccines Aged Out No longer eligi ble based on patient's age to complete this topic Hepatitis A Vaccines Aged Out No long er eligible based on patient's age to complete this topic Hepatitis B Vaccines Aged Out No long er eligible based on patient's age to complete this topic IPV Vaccines Aged Out No longer eligi ble based on patient's age to complete this topic MMR Vaccines Aged Out No longer eligi ble based on patient's age to complete this topic Meningococcal ACWY Vaccine Aged Out N o longer eligible based on patient's age to complete this topic Meningococcal B Vacine Aged Out No lo nger eligible based on patient's age to complete this topic RSV Immunization Patients Un jason 20 months Aged Out No longer eligible b ased on patient's age to complete this topic Varicella Vaccines Aged Out No longer eligible based on patient's age to complete this topic
--- OUTSIDE RECORDS SUMMARY | 2025-01-03 09:57 | XMS_ITS | Clinical Summary ---
Author Organization [employer] Address [address] [facility] [address] [place] [address] Care Team Providers Care Truck Driver Name Role Phone Deann Livingston MD Primary Care Pro vider Allergies No known active allergies Medications rosuvastatin (Crestor) 10 MG tablet Take 1 tablet (10 mg) by mouth in the morning. 90 tablet 1 3 Active tamsulosin (Flomax) 0.4 MG 24 hr capsuleIndicatio ns:Benign prostatic hyperplasia with urinary hesitancy Take 1 capsule (0.4 mg) by mouth Once per day. 90 capsule 4 Active senna (Senokot) 8.6 MG tabletIndication s:Constipation, unspecified constipation type TAKE 2 TABLETS BY MOUTH EVERY DAY NEEDED FOR CONSTIPATION 60 tablet 4 Active Active Problems Problem Noted Date Diagnosed Date Diverticulosis 09/19/2024 Calculus of gallbladder with out cholecystitis without obstruction 09/19/2024 Sensorineural hearing loss (SNHL) of both ears 0 05/29/2023 Overview (05/29/2023): 03/18/[address] results, no sinus disease, if recurrent recommend flonase F/u PRN Tubulovillous adenoma 05/15/2023 Overview (05/15/2023): Concern for IBD and diverticulosis on CT of abdomen on 10/12/22. Hx of irregular colonoscopy. Repeat colonoscopy 12/21/22: Tissue sample from colonoscopy positive for tubulovillous adenoma, cannot evaluate margin. Post op dx: diverticulosis, polyp, hemorrhoids Reports after they removed polyps, GI pain has resolved. Repeat in 2 years. Dental calculus 03/30/2023 Periodontal disease 02/18/2023 Health care maintenance 11/24/2022 Overview (05/15/2023): Dental: 02/18/23 Eye: Referred [facility] eye care 11/19/22 IZ: Up to date Colonoscopy: 12/21/22 tubulovillous adenoma polyps. Repeat 2 years HIV: Non reactive 02/02/22 Hep C: Non reactive 02/02/22 Hep B: Ordered today 04/27/23 Lung cancer: Never smoked, no screening Mixed hyperlipidemia 11/19/2022 Overview (05/15/2023): Hx of irregular lipid panel 11/19/22. Taking rosuvastatin 10 mg daily at bedtime. Continue low fat diet and exercise Assessment & Plan (05/15/2023 9:04 PM EDT): Will check lipid panel again today Notify results F/u 3 months or sooner PRN Allergic rhinitis 07/28/2015 Overview (05/29/2023): Care managed by ENT Continue Flonase use and nasal saline spray 03/18/[address] results, no sinus disease, if recurrent recommend flonase F/u PRN 01/14/23: Flexible laryngoscopy WNL 02/03/23: CT sinuses - left mild nasal septal deviation. Mild to mod pansinonasal mucosal disease Benign prostatic hyperplasia 09/24/2013 Overview (03/16/2023): Pt reports continued difficulty urinating Continue Flomax 0.4 mg Gastroesophageal reflux disease 05/10/2012 Encounters Date Type Department Care Team Description 01/02/2025 Telephone [facility] MED[facility]INE [address] [place], [place] [phone] Deann Livingston MD February recall 11/22/2024 9:30 AM EST Office Visit [facility] ADULT DENTAL [address] [place], [place] [phone] Toni Jeffery 11/13/2024 8:00 AM EST Office Visit [facility] ADULT DENTAL [address] [place] [address] Lizz Jefferyricio 11/09/2024 Telephone [facility] [address] [place] [address] Sury Michaels RN Results 11/08/2024 Telephone [facility] [address] [place] [address] Deann Livingston MD Callback 11/01/2024 8:00 AM EST Office Visit [facility] ADULT DENTAL [address] [place] [address] Jose D, Toni 10/25/2024 10:00 AM EST Office Visit [facility] ADULT DENTAL [address] [place] [address] Toni Jeffery from Last 3 Months Immunizations Name Administration Dates Next Due Hep B, adult 06/16/2023,,09/12/2012,12/27 Influenza High-dose Quadriva lent Preservative Free 07/30/2023,08/10/2022,07/23/2021 Influenza injectable quadriv alent IIV4 with preservative 07/28/2015 Influenza injectable quadriv alent preservative free 07/23/2019,08/12/2018,08/12/2016 Influenza, IIV3, injectable 08/04/2013 Influenza, seasonal, injecta ble, preservative free 07/18/2020,07/11/2017 Pfizer Covid-19 Vaccine 12+ 09/18/2024 Pfizer Covid-19 Vaccine 12+ Bivalent 05/19/2023, 11/19/2022 Pneumococcal Conjugate PCV 13 07/18/2020, 020 Pneumococcal Conjugate PCV 20 09/18/2024 Pneumococcal Polysaccharide PPSV23 02/02/2022 TD (adult), 2 Lf tetanus tox oid, preservative free, adsorbed 08/02/2008 Tdap 05/24/2019 Zoster, Recombinant 02/08/2023,11/19/2022 Zoster, live 02/04/2015 Family History Medical History Relation Name Comments Prostate cancer Father Diabetes type II Sister Heart attack Sister Hypertension Sister Liver cancer Sister Relation Name Status Comments Father Sister Social History Tobacco Use Types Packs/Day Years Used Date Smoking Tobacco: Never Smokeless Tobacco: Never Tobacco Cessation:Counseling Given: Not Answered Alcohol Use Standard Drinks/Week Comments Yes 2 [...] Orientation Straight 09/13/2022 10 :19 AM EDT Last Filed Vital Signs Vital Sign Reading Time Taken Comments Blood Pressure 132/80 11/22/2024 10:10 AM EST Pulse 65 10/02/2024 9:43 AM EST Temperature 36.6 ??C (97.8 ??F) 09/18/2024 10:[address] Respiratory Rate 20 09/18/2024 10:55 AM EST Oxygen Saturation 99% 09/18/2024 10:55 AM EST Inhaled Oxygen Concentration - - Weight 56.7 kg (125 lb) 09/18/2024 10:55 AM EST Height 160 cm (5' 3 ) 09/18/2024 10:55 AM EST Body Mass Index 22.14 09/18/2024 10:55 AM EST Plan of Treatment Upcoming Encounters Date Type Department Care Team (Late st Contact Info) Description 02/22/2025 10:00 AM EDT Office Visit [facility] MED[facility]INE [address] [place], [place] [phone] Deann Livingston MD [address] [place], [place] [phone] Health Maintenance Due Date Last Done Comments CT Colonography 1955 FIT DNA/Cologuard 1955 FIT 1955 FOBT 1955 Sigmoidoscopy 1955 Alcohol/Substance Use Screening 1966 Influenza Vaccine (#1) 2024 , 08/10/2022, 07/23/2021, Additional history exists Dental Oral Exam 04/02/2025 10/02/2024, 02/18/2023 Dental Prophylaxis 04/02/2025 10/02/2024, 03/30/2023 Depression Screening 09/18/2025 09/18/2024, 09/18/20 24 SDOH Screening 09/18/2025 09/18/2024 Dental X-Ray: Bitewings 10/03/2025 10/02/2024, 02/18 Tobacco Screening 11/22/2025 11/22/2024 Dental X-Ray: Full Mouth 02/19/2026 02/18/2023 DTaP/Tdap/Td Vaccines (2 - Td or Tdap) 05/24/2029 05/24/2019, 08/02/2008 Lipid Panel 09/18/2029 09/18/2024, 04/14, 11/19/2022, Additional history exists RSV Patients and Patients Aged 60 years or older (1 - 1-dose 75+ series) 2029 Colonoscopy 12/21/2032 12/21/2022 Colorectal Cancer Screening 12/21/2032 Zoster Vaccines Completed 02/08/2023, 04/2023, 02/04/2015 Hepatitis B Vaccines Completed 06/16/2023, 05/19/2023, 09/12/2012, Additional history exists COVID-19 Vaccine Completed 09/18/2024, 04/2023, 11/19/2022, Additional history exists Hepatitis C Screening Completed 09/18/2024, 022 Pneumococcal Vaccine: 50+ Years Completed 09/18/2024, 02/02/2022, 07/18/2020, Additional history exists HIB Vaccines Aged Out No longer eligi [...] patient's age to complete this topic Meningococcal Vaccine Aged Out No leydi tiburcio eligible based on patient's age to complete this topic RSV under 20 months Aged Out No longe r eligible based on patient's age to complete this topic Rotavirus Vaccines Aged Out No longer eligible based on patient's age to complete this topic Procedures Procedure Name Priority Date/Time Associated Diagnosis Comments GROSS AND MICROSCOPIC LEVEL 3 Routine 12/13/2024 8:03 AM EST Calculus of gallbladder without cholecystitis without obstruction 18 O RESIN-BASED COMPOSITE - 1 SURF, POSTERIOR Routine 11/22/2024 9:30 AM EST 31 O RESIN-BASED COMPOSITE - 1 SURF, POSTERIOR Routine 11/13/2024 8:00 AM EST 13 O RESIN-BASED COMPOSITE - 1 SURF, POSTERIOR Routine 11/01/2024 8:00 AM EST 12 O RESIN-BASED COMPOSITE - 1 SURF, POSTERIOR Routine 11/01/2024 8:00 AM EST 8 DFL RESIN-BASED COMPOSITE - 3 SURF, ANTERIOR Routine 10/25/2024 10:00 AM EST 7 ML RESIN-BASED COMPOSITE - 2 SURF, ANTERIOR Routine 10/25/2024 10:00 AM EST US ABDOMEN COMPLETE Routine 10/04/2024 8 :37 AM EST Calculus of gallbladder without cholecystitis without obstruction Full PROPHYLAXIS - ADULT Routine 10/02/2024 10:00 AM EST BITEWINGS - 4 RADIOGRAPHIC IMAGES Routine 10/02/2024 10:00 AM EST PERIODIC ORAL EVALUATION - ESTABLISHED PATIENT Routine 10/02/2024 10:00 AM EST HEPATITIS C AB W/REFL TO HCV RNA, QN, PCR Routine 09/18/2024 11:55 AM EST Screening examination for STI LIPID PANEL, STANDARD Routine 09/18/2024 11:55 AM EST Mixed hyperlipidemia INTRAORAL - COMPLETE SERIES OF RADIOGRAPHIC IMAGES Routine 02/18/2023 2:00 PM EDT HM COLONOSCOPY Routine 12/21/2022 from Last 3 Months or Most Recently Relevant to Health Maintenance Results * Gross and Microscopic Level 3 (12/13/2024 8:03 AM EST) 12/13/2024 8:03 AM EST 12/13/2024 8:29 AM EST [facility] - 12/16/2024 5:33 PM EST ----- ------- Name: Charlie Alfaro ?Age/Sex: 69/M ? : 1955 Unit#: [id number] ?? Attend Dr: Ozzie Kuo MD ?Re12/13/24 ?Status: DEP SDC ? Location: HO.SSS ?Disch: ? ----- ------- SPEC : [id number] ?RECD: 12/13/24 ? STATUS: ??SOUT ? REQ NUM: [id number] ? YESSENIA: 12/13/24 ? SUBM DR: Ozzie Kuo MD ? ENTERED: ??12/13/24 ?SP TYPE: Surgical ? OTHR DR: Lin Eaton CORE ASSEMBLY SUPERVISOR ? ORDERED: ??Gross Micro L3 ? Diagnosis ?? Gallbladder, cholecystectomy: ??Chronic cholecystitis and cholelithiasis. ?Clinical History Calculus of gallbladder, bile duct w/o cholangitis ?Microscopic Description Microscopic sections reviewed. ? Material Received ?? Gallbladder ? Gross Description Received in formalin labeled ?gallbladder? is a previously incised, smooth and shaggy, blue- green gallbladder measuring 6.8 x 3.0 x 2.5 cm, resected in continuity with 0.4 cm of patent cystic duct. ??Upon opening the gallbladder contains copious green bile and a 0.9 cm multifaceted black cholelith in the neck of the gallbladder. ??The mucosa is finely reticulated, osuna-pink and osuna-brown. ??On sectioning the wall is homogeneous osuna-white and measures up to 0.15 cm in thickness. ??Boiling House Oiler sections are submitted in a cassette labeled A1 to include the margin of resection of the cystic duct. CEDS Copies To: ?? AngelitoLingavin Ferreira CORE ASSEMBLY SUPERVISOR ?? [address] ?? [place] [address] ?? [phone] ?? Ozzie Kuo MD ?? [facility] [place] [facility] ?? [address] ?? [place] ?? [phone] ?? [email or web address] ? CONTINUED ON NEXT PAGE ----- ------- Name: Charlie Alfaro ?Age/Sex: 69/M ? : 1955 Unit#: [id number] ?? Attend Dr: zOzie Kuo MD ?Re12/13/24 ?Status: DEP WAC ? Location: HO.SSS ?Disch: ? ----- ------- SPEC : [id number] ?RECD: 12/13/24 ? STATUS: ??SOUT ? REQ NUM: [id number] ? YESSENIA: 12/13/24 ? SUBM DR: Ozzie Kuo MD ? ENTERED: ??12/13/24 ?SP TYPE: Surgical ? OTHR : Lin Eaton CORE ASSEMBLY SUPERVISOR ? ORDERED: ??Gross Micro L3 ? ----- ------- Signed (signature on file) Malina Rodríguez MD 12/16/24 5513 ? ----- ------- ? END OF REPORT ? us Generic External Data Provider LAB CYTOLOGY ORDE RABLES Final Result [facility] [address] [place] [phone] * US Abdomen Complete (10/04/2024 8:37 AM EST) Anatomical Region Laterality Modality Abdomen Ultrasound 10/04/2024 8:37 AM EST Narrative 11/04/2024 11:58 AM EST ? [facility] ?[address] ?[place] [address] ? Ultrasound Report ? Signed with Addenda ? Patient: Charlie Alfaro ?MR#: [id number] ?? [id number] ? : 1955 ?Acct:[id number] ? Age/Sex: 68 / M ?ADM Date: 10/04/24 ? Loc: HO.US ? Attending Dr: Deann Rendon MD ? Ordering Physician: Deann Livingston MD ?? Date of Service: 10/04/24 ?? Procedure(s): US abdomen complete ?? Accession Number(s): [id number] ? cc: Deann Livingston MD; Lin Eaton ?ADDENDUM ? ADDENDUM #1 ? Results Acknowledgement: ?? Results received and confirmed with Sury Morel RN, from Dr. Dhaliwal ?? Justice's office at 1:25 PM 11/08/2024. ?? Soraida Jett, 11/08/2024 1:26 PM ? Electronically signed by: ??Arlin Kang MD ??11/09/2024 07:59 AM EST ?? RP ? Addendum Dictated By: ?Arlin Kang MD ? Addendum Signed By: ? <Electronically signed by Arlin Kang MD in OV> ?11/09/24 0759 ?? Addendum Cosigned By: ? DD/ ? TD/TT: 10/04/24 ? EXAMINATION: ?? US ABDOMEN COMPLETE ? CLINICAL INFORMATION: ?? Calculus of the gallbladder. ? COMPARISON: ?? CT abdomen and pelvis 10/12/2022. Ultrasound abdomen complete ?? 12/22/2020. ? TECHNIQUE: ?? Real-time imaging of the abdominal viscera. ? FINDINGS: ? PANCREAS: Normal. ? ABDOMINAL AORTA: The proximal, mid, and distal segments are normal in ?? caliber. ? INFERIOR VENA CAVA: Visualized portions are normal. ? LIVER: Normal. The liver is normal in size. The liver contour is ?? normal. Parenchymal echogenicity is normal. No focal hepatic lesion. ?? There is no intrahepatic biliary duct dilatation seen. ? GALLBLADDER: The gallbladder is physiologically distended. Multiple ?? mobile gallstones are present. No evidence of pericholecystic fluid. ?? Thickening of gallbladder wall and ringdown artifact suggesting ?? adenomyomatosis. There is focal thickening of the gallbladder wall ?? which measure up to 8 mm. Cannot rule out gallbladder lesion. ? COMMON BILE DUCT: Normal in caliber measuring 0.4 cm in diameter. ? RIGHT KIDNEY: Normal. No hydronephrosis. No renal calculi or focal ?? parenchymal lesions. The kidney measures 9.8 cm in maximum dimension. ? LEFT KIDNEY: No hydronephrosis or renal calculi. The kidney measures ?? 10.4 cm in maximum dimension. Echogenic structure in the middle pole ?? left kidney probably a cortical stone measuring up to 3 mm. ? SPLEEN: Normal. The spleen measures 10.9 cm in maximum dimension. ? FREE FLUID: None. ? US/US abdomen complete ?? IMPRESSION: ? 1. ??Cholelithiasis without ultrasound evidence of acute cholecystitis. ? 2. ??There is focal thickening of the gallbladder wall measuring up to 8 ?? mm. Cannot rule out gallbladder lesion. Thickening and Ringdown ?? artifact from the gallbladder wall, adenomyomatosis. ATTENTION TO ?? SURGICAL CONSULTATION RECOMMENDED. May consider cholecystectomy, if not ?? performed Consider correlation with follow-up MRI/MRCP. ? 3. ??Echogenic 3 mm structure in the middle pole left kidney probably a ?? cortical stone. ? (Referring physician staff is being called, by physician staff ?? assistance, to be alerted of the above critical findings and ?? recommendations.) [employer] communication system ? 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 Electronically signed by: ??Arlin Kang MD ??11/04/2024 11:55 AM EST ?? RP ? Dictated By: ?Arlin Kang MD ? Signed By: ?<Electronically signed by Arlin Kang MD in OV> ?11/04/24 1155 ? DD/ 0837 ? TD/TT: 10/04/24 0858 ? Payroll Secretary: HS ? Procedure Note Donkaylynn, Alisha - 11/09/[address] [address] Ultrasound Report Signed with Foster Patient: Fatuma Alfaro#: [id number] : 5Acct:[id number] Age/Sex: 68 / MADM Date: 10/04/24 Loc: HO.US Attending Dr: Deann Rendon MD Ordering Physician: Deann Livingston MD Date of Service: 10/04/24 Procedure(s): US abdomen complete Accession Number(s): [id number] cc: Deann Livingston MD; Lin EatonP ADDENDUM ADDENDUM #1 Results Acknowledgement: Results received and confirmed with Sury Morle RN, from Dr. Isra Rendon's office at 1:25 PM 11/08/2024. Soraida Jett, 11/08/2024 1:26 PM Electronically signed by: Arlin Kang MD 11/09/2024 07:59 AM EST Addendum Dictated By: Arlin Kang MD Addendum Signed By: <Electronically signed by MD Katelin in OV> 11/09/24 0759 Addendum Cosigned By: DD/ TD/TT: 10/04/24 EXAMINATION: US ABDOMEN COMPLETE CLINICAL INFORMATION: Calculus of the gallbladder. COMPARISON: CT abdomen and pelvis 10/12/2022. Ultrasound abdomen complete 12/22/2020. TECHNIQUE: Real-time imaging of the abdominal viscera. FINDINGS: PANCREAS: Normal. ABDOMINAL AORTA: The proximal, mid, and distal segments are normal in caliber. INFERIOR VENA CAVA: Visualized portions are normal. LIVER: Normal. The liver is normal in size. The liver contour is normal. Parenchymal echogenicity is normal. No focal hepatic lesion. There is no intrahepatic biliary duct dilatation seen. GALLBLADDER: The gallbladder is physiologically distended. Multiple mobile gallstones are present. No evidence of pericholecystic fluid. Thickening of gallbladder wall and ringdown artifact suggesting adenomyomatosis. There is focal thickening of the gallbladder wall which measure up to 8 mm. Cannot rule out gallbladder lesion. COMMON BILE DUCT: Normal in caliber measuring 0.4 cm in diameter. RIGHT KIDNEY: Normal. No hydronephrosis. No renal calculi or focal parenchymal lesions. The kidney measures 9.8 cm in maximum dimension. LEFT KIDNEY: No hydronephrosis or renal calculi. The kidney measures 10.4 cm in maximum dimension. Echogenic structure in the middle pole left kidney probably a cortical stone measuring up to 3 mm. SPLEEN: Normal. The spleen measures 10.9 cm in maximum dimension. FREE FLUID: None. US/US abdomen complete IMPRESSION: 1. Cholelithiasis without ultrasound evidence of acute cholecystitis. 2. There is focal thickening of the gallbladder wall measuring up to 8 mm. Cannot rule out gallbladder lesion. Thickening and Ringdown artifact from the gallbladder wall, adenomyomatosis. ATTENTION TO SURGICAL CONSULTATION RECOMMENDED. May consider cholecystectomy, if not performed Consider correlation with follow-up MRI/MRCP. 3. Echogenic 3 mm structure in the middle pole left kidney probably a cortical stone. 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 Blood Venous blood specimen / Unknown 09/18/2024 11:55 AM EST 09/18/2024 1:19 PM EST Deann Rendon MD LAB BLOOD ORDERAB LES Final Result [facility] [address] [place] [phone] * (ABNORMAL) Lipid Panel, Standard (09/18/2024 11:55 AM EST) Triglycerides 71 <150 mg/dL [facility] Comment:Desirable Triglyceri de: less than 150 mg/dLBorderline High Triglyceride 150-199 mg/dLHigh Triglyceride: 200-499 mg/dLVery High Triglyceride: greater than or equal to 5OO mg/dL Cholesterol 181 <200 mg/dL [facility] Comment:Desirable Cholestero l: less than 200 mg/dLBorderline High Cholesterol: 200-239 mg/dLHigh Cholesterol: greater than 239 mg/dL LDL Cholesterol Calculated 109(H) <100 mg/dL [facility] Comment:Desirable LDL: less than 100 mg/dLNear Optimal/Above Optimal LDL: 110- 129 mg/dLBorderline High LDL: 130-159 mg/dLHigh LDL: 160-189 mg/dLVery High LDL: greater than or equal to 190 mg/dL HDL Cholesterol 58 >40 mg/dL [facility] Comment:Desirable HDL: great er than 40 mg/dL Note: This HDL assay may give artificially low results in patients with liver disease. Blood Venous blood specimen / Unknown 09/18/2024 11:55 AM EST 09/18/2024 1:19 PM EST us Deann Rendon MD LAB BLOOD ORDERAB LES Final Result [facility] [address] [place] [address] [phone] * (ABNORMAL) Colonoscopy (12/21/2022) Colonoscopy Abnormal( A) Normal Comment:Diverticulosis, poly p, hemorrhoids Historical Provider HEALTH MAINTENANCE Final Result from Last 3 Months or Most Recently Relevant to Health Maintenance Insurance MEDICARE Member Subscriber Plan / Payer (Ef fective 2022-Present) Name:Charlie Alfaro Member ID:[id number] Relation to Subscriber:Self Name:Charlie Alfaro Subscriber ID:[id number] Payer ID:STATE Group ID:Not on file Type:Medicare Address: [facility] [address] [phone] [facility] [place] [address] [facility] Care Teams Truck Driver Relationship Specialty Start Date End Date Deann Livingston MD [address] [place] [address] [phone] PCP - General Internal Medicine 08/23/23
--- OUTSIDE RECORDS SUMMARY | 2025-01-03 09:57 | XMS_ITS | Encounter Summary ---
Author Organization [employer] Address [address] [place] [address] [address] [place] [address] Care Team Providers Care Dental Service Chief Name Role Phone Deann Livingston MD Primary Care Pro vider Reason for Visit * Reason Onset Date Comments February01/02/2025 Encounter Details Date Type Department Care Team ([facility] st Contact Info) Description 01/02/2025 Telephone [facility] [address] [place] [address] [phone] Deann Livingston MD [address] [place] [address] February Social History Tobacco Use Types Packs/Day Years [...] encounter Miscellaneous Notes * Telephone Encounter - Katty Cortez MA - 01/02/2025 9:12 AM EST Telephone call to patient to schedule a recall appointment. No answer, Left voicemail to return call to clinic.. Recall letter sent. Visit type: Office visit Appointment notes: meds and condition Month due: February With: Isra Please schedule appointment above if patient returns call documented in this encounter Plan of Treatment Upcoming Encounters Date Type Department Care Team (Late st Contact Info) Description 02/22/2025 10:00 AM EDT Office Visit [facility] [address] [place] [address] Deann Livingston MD [address] [place] [phone] documented as of this encounter Visit Diagnoses Not on filedocumented in this encounter Additional Health Concerns Assessment Noted Time PHQ-9 Depression Total Score: 0 09/18/20 24 10:56 AM EST documented as of this encounter Care Teams Dental Service Chief Relationship Specialty Start Date End Date Deann Livingston MD [address] [place] [phone] PCP - General Internal Medicine 08/23/23 documented as of this encounter
== END 2025-01-03 09:58 | disposition home or self-care (01) ==
PROVIDERS: PCP Registered Nurse; Visit Provider Surgery
DX: Z12.11 Encounter for screening for malignant neoplasm of colon (principal)
CPT/HCPCS: 99024

== ENCOUNTER → 2025-01-03 09:13 | Outpatient (BNVA) | payer MEDICARE, SELFPAY | PROVIDERS: PCP Registered Nurse; Visit Provider Surgery | DX: Z12.11 Encounter for screening for malignant neoplasm of colon (principal) | CPT/HCPCS: 99212 ==

== ENCOUNTER 2025-02-25 08:33 | Outpatient (REF) | payer MEDICARE, SELFPAY ==
--- NOTE | ~2025-02-25 | XR_ITS ---
EXAMINATION: XR RIBS, LEFT CLINICAL INFORMATION: PAIN COMPARISON: No priors available. TECHNIQUE: PA view of the chest, and 3 views of the left ribs were obtained. FINDINGS: Lungs are clear. No consolidation, pneumothorax, or pleural effusion. The cardiomediastinal silhouette and pulmonary vasculature are normal. Osseous structures are unremarkable. Ribs are intact. No fractures are identified. XR/XR ribs LT min 3V w CXR1V IMPRESSION: Unremarkable examination. Electronically signed by: Yonis Hummel MD 02/25/2025 09:33 AM EDT
--- NOTE | ~2025-02-25 | XR_ITS ---
EXAMINATION: XR CERVICAL SPINE CLINICAL INFORMATION: PAIN; fall 3 weeks prior. Left neck pain. COMPARISON: None available. TECHNIQUE: 3 views of the cervical spine were obtained. FINDINGS: Normal lordosis. No scoliosis. No fracture, compression deformity, or suspicious bone lesion. C1-2 articulation and craniocervical junction are intact and aligned. There is a 2 mm anterolisthesis C5 on C6. Alignment is otherwise anatomic. Normal facet alignment. Mild to moderate multilevel degenerative facet changes bilaterally. Moderate disc space degeneration present, most significant at C6-7. No bony neural foraminal narrowing on either side. The pre and paravertebral soft tissues are normal. The lung apices are clear. XR/XR cervical spine 3V IMPRESSION: 1. No acute bony abnormalities. 2. Mild to moderate diffuse spondylosis. Electronically signed by: Yonis Hummel MD 02/25/2025 09:41 AM EDT
--- NOTE | ~2025-02-25 | XR_ITS ---
EXAMINATION: XR SHOULDER, LEFT CLINICAL INFORMATION: PAIN ; fall 3 weeks prior. Left shoulder pain. COMPARISON: None available. TECHNIQUE: AP external rotation, Grashey, scapular Y, and axillary views of the left shoulder. FINDINGS: Normal bone mineralization. No fracture, dislocation, or suspicious bone lesion. The glenohumeral joint is normal. AC joint shows mild subluxation and mild spurring. A low to moderate grade AC injury is a consideration. There is a type III acromion. No undersurface spurring. The subacromial space is preserved. Remainder of the soft tissue and bony structures appear normal. XR/XR shoulder LT min 2V IMPRESSION: 1. No fracture or gross dislocation. 2. Mild subluxation of the AC joint, indicating a possible low to moderate grade AC joint injury. Correlate with point tenderness. Electronically signed by: Yonis Hummel MD 02/25/2025 09:30 AM EDT
--- OUTSIDE RECORDS SUMMARY | 2025-02-25 09:00 | XMS_ITS | Encounter Summary ---
Author Organization [employer] Address [address] [place] [address] 7 [place] [address] Care Team Providers Care Basting Cleaner Name Role Phone Deann Livingston MD Primary Care Pro vider Reason for Visit * Reason Comments CHW - Office Visit Meds and conditions/ pt fell about 1 month ago, he never went to the ER but 2 weeks after the fall he started experiencing tenderness and pain in the back of his head as well as some pain on the right side of his body along with chest pressure Encounter Details Date Type Department Care Team (Late st Contact Info) Description 02/22/2025 10:00 AM EDT Office Visit [facility] [address] [place], [place] [phone] Deann Livingston MD [address] [place], [place] [phone] Fall, initial encounter (Primary Dx); Neck pain; Chest pain, unspecified type; Acute pain of left shoulder; Mixed hyperlipidemia; Health care maintenance; Other acute back pain; Concussion without loss of consciousness, initial encounter Social History Tobacco Use Types Packs/Day Years Used Date Smoking Tobacco: Never Passive Smoke Exposure: Never Smokeless Tobacco: Never Tobacco Cessation:Counseling Given: [...] AM EDT documented as of this encounter Last Filed Vital Signs Vital Sign Reading Time Taken Comments Blood Pressure 134/82 02/22/2025 10:00 AM EDT Pulse 77 02/22/2025 10:00 AM EDT Temperature 36.4 ??C (97.5 ??F) 02/22/2025 10:00 AM E DT Respiratory Rate 20 02/22/2025 10:00 AM EDT Oxygen Saturation 94% 02/22/2025 10:00 AM EDT Inhaled Oxygen Concentration - - Weight 60.6 kg (133 lb 9.6 oz) 02/22/2025 10:00 AM EDT Height 160 cm (5' 3 ) 02/22/2025 10:00 AM EDT Body Mass Index 23.67 02/22/2025 10:00 AM EDT documented in this encounter Progress Notes * Deann Rendon MD - 02/22/2025 10:00 AM EDT Subjective Patient ID: Charlie Alfaro is a 69 y.o. male who presents for f up apt and sick visit HPI 69 [place] ( lives in [place] but return to [place] last 18 months and came back last week) w PMX of PBH,Diverticulosis,GERD,HLD Comes for F up apt Reports had cholecystectomy in 11/2024 States fell 2 weeks ago over the ice,slipped ,fall was described as mechanical, over back and head ,no LOC , since then ongoing DUCKWORTH occipital , no blurry vision,does have vertigo ,since fall also having pain in neck,upper back ,left shoulder and anterior chest ------ Assessment and Plan: Health care maintenance -Annual exam done 09/2024 -PSA 09/2024 wnl -Colonoscopy: 12/21/22 tubulovillous adenoma polyps. Repeat 2 years---Saw Dr Yañez in 12/2024 plan for colonoscopy --has apt for it 03/05/2025 -Vaccines hep Bx4, P13 2019 , P23 x1 in 2021,COVID 19 Booster 09/2024, Tdap 2018 ,Shingrix x3 , Fluvaccine in 08/2024 in [place] per pt -P20 09/2024 ,advised RSV to get at 74 y HLD -09/2024 LDL 105 -repeat chem and fasting lipids -pt off statins for last years Diverticulosis/GERD -CT abd/pelvis w contrast 09/2022: Diffuse colonic diverticulosis. There is mild mural thickening involving a short segment of the sigmoid colon but no pericolic fat stranding. Findings are suspicious for inflammatory bowel disease. Differential diagnosis includes underlying colonic lesion, however considered less likely Cholelithiasis without wall thickening. large dependent 8 mm gallstone without wall thickening. Thegallbladder is contracted.-- now s/p cholecystectomy -Colonoscopy: 12/21/22 tubulovillous adenoma polyps. Repeat 2 years BPH -Last saw urologist 02/2023 -Resume flomax DUCKWORTH,Neck pain,upper back pain, left shoulder pain,CP States fell 2 weeks ago over the ice,sliped ,fall was described as mechanical, over back and head ,no LOC , since then ongoing DUCKWORTH occipital , no blurry vision,does have vertigo ,since fall also having pain in neck,upper back ,left shoulder and anterior chest -EKG today HR 69 , Qtc 407, NSR , no ischemic findings Symptoms seems associated w fall causing MSQ pain and concussion syndrome w no alarming symptoms atthis time from hx nor exam -rib/CXR XR -left shoudler XR -neck XR -cyclobenzaprine -- -prescribed muscle relaxant for few days -prior bedtime- explained to avoid ETOH,and to not drive or use heavy machinery after taking medication -Lidoderm patches -tylenol PRN and meloxicam prn or mod pain -alarm signs and symptoms discussed -will need further head image if alarm symptoms or ongoing symptoms are present as head CT Review of Systems Constitutional: Negative for diaphoresis and fever. Respiratory: Negative for cough and shortness of breath. Cardiovascular: Positive for chest pain. Musculoskeletal: Positive for back pain and neck pain. Neurological: Vertigo Objective BP 134/82 (BP Location: Left arm, Patient Position: Sitting, BP Cuff Size: Adult) Pulse 77 Temp 97.5 ??F (36.4 ??C) (Temporal) Resp 20 Ht 5' 3 (1.6 m) Wt 133 lb 9.6 oz (60.6 kg) SpO2 94% BMI 23.67 kg/m?? Physical Exam Constitutional: General: He is not in acute distress. Appearance: Normal appearance. He is not ill-appearing. HENT: Right Ear: There is impacted cerumen. Left Ear: Tympanic membrane normal. Mouth/Throat: Mouth: Mucous membranes are moist. Eyes: Extraocular Movements: Extraocular movements intact. Pupils: Pupils are equal, round, and reactive to light. Cardiovascular: Rate and Rhythm: Normal rate and regular rhythm. Heart sounds: No murmur heard. Pulmonary: Effort: No respiratory distress. Breath sounds: No rhonchi. Abdominal: Palpations: Abdomen is soft. Musculoskeletal: General: Tenderness present. Cervical back: Neck supple. Tenderness present. No rigidity. Comments: Anterior chest pain is reproduced with palpation, no deformities no bruises There is pain in paraspinal points in neck, mild pain in left shoulder bit normal ROM,no erythema no swelling Lymphadenopathy: Cervical: No cervical adenopathy. Skin: Findings: No rash. Neurological: General: No focal deficit present. Mental Status: He is alert and oriented to person, place, and time. Cranial Nerves: No cranial nerve deficit. Sensory: No sensory deficit. Motor: No weakness. Assessment/Plan Problem List Items Addressed This Visit Mixed hyperlipidemia Relevant Orders Comprehensive Metabolic Panel Lipid Panel, Standard Health care maintenance Back pain Concussion Other Visit Diagnoses Fall, initial encounter - Primary Relevant Orders XR Cervical Spine 2-3 Views XR Shoulder 2+ Views Left XR Ribs 2 Views Left with Chest Anteroposterior Neck pain Relevant Orders XR Cervical Spine 2-3 Views Chest pain, unspecified type Relevant Orders XR Ribs 2 Views Left with Chest Anteroposterior ECG 12 lead (Completed) Acute pain of left shoulder Relevant Orders XR Shoulder 2+ Views Left documented in this encounter Plan of Treatment Upcoming Encounters Date Type Department Care Team (Late st Contact Info) Description 04/16/2025 9:00 AM EDT Office Visit [facility] MEDICINE [address] [place] [address] [phone] Deann Livingston MD [address] [place], [place] [phone] Scheduled Orders Name Type Priority Associated Diagnoses Orde r Schedule XR Cervical Spine 2-3 Views Imaging Routine Fall, initial encounter Neck pain Expected: 02/22/2025, Expires: 02/22/2026 XR Shoulder 2+ Views Left Imaging Routine Fall, initial encounter Acute pain of left shoulder Expected: 02/22/2025, Expires: 02/22/2026 XR Ribs 2 Views Left with Chest Anteroposterior Imaging Routine Fall, initial encounter Chest pain, unspecified type Expected: 02/22/2025, Expires: 02/22/2026 Comprehensive Metabolic Panel Lab Routine Mixed hyperlipidemia Expected: 02/22/2025 (Approximate), Expires: 02/22/2026 Lipid Panel, Standard Lab Routine Mixed hyperlipidemia Expected: 02/22/2025 (Approximate), Expires: 02/22/2026 documented as of this encounter Procedures Procedure Name Priority Date/Time Associated Diagnosis Comments ECG 12-LEAD Routine 02/22/2025 11:14 AM EDT Chest pain, unspecified type documented in this encounter Results * ECG 12 lead (02/22/2025 11:14 AM EDT) Narrative Deann Livingston MD - 02/22/2025 11:14 AM EDT -EKG today HR 69 , Qtc 407, NSR , no ischemic findings us Deann Rendon MD ECG ORDERABLES F inal Result documented in this encounter Visit Diagnoses Diagnosis Fall, initial encounter- Primary Neck pain Cervicalgia Chest pain, unspecified type Acute pain of left shoulder Mixed hyperlipidemia Health care maintenance Other acute back pain Concussion without loss of consciousness, initial encounter documented in this encounter Additional Health Concerns Assessment Noted Time PHQ-9 Depression Total Score: 0 09/18/20 24 10:56 AM EST documented as of this encounter Care Teams Basting Cleaner Relationship Specialty Start Date End Date Deann Livingston MD [address] [place] [phone] PCP - General Internal Medicine 08/23/23 documented as of this encounter
--- OUTSIDE RECORDS SUMMARY | 2025-02-25 09:00 | XMS_ITS | Clinical Summary ---
Author Organization [employer] Address [address] [facility] [address] [place] [address] Care Team Providers Care Revenue Cycle Administrator Name Role Phone Deann Livingston MD Primary Care Pro vider Allergies No known active allergies Medications tamsulosin (Flomax) 0.4 MG 24 hr capsuleIndicatio ns:Benign prostatic hyperplasia with urinary hesitancy Take 1 capsule (0.4 mg) by mouth Once per day. 90 capsule 09/18/20 24 Active senna (Senokot) 8.6 MG tabletIndication s:Constipation, unspecified constipation type TAKE 2 TABLETS BY MOUTH EVERY DAY NEEDED FOR CONSTIPATION 60 tablet 09/18/20 24 Active meloxicam (Mobic) 15 MG tablet Take 1 tablet (15 mg) by mouth Once per day. 30 tablet 02/23/20 25 026 Active lidocaine (Lidoderm) 5 % patch Apply 1 patch topically Once per day. Remove & discard patch within 12 hours or as directed by MD. 30 patch 02/23/20 25 Active cyclobenzaprine (Flexeril) 5 MG tablet Take 1 tablet (5 mg) by mouth at bedtime for 7 days. 7 tablet 02/23/20 25 025 Active rosuvastatin (Crestor) 10 MG tablet Take 1 tablet (10 mg) by mouth in the morning. 90 tablet 1 08/23/20 23 025 Discontin ued(Other ) Active Problems Problem Noted Date Diagnosed Date Back pain 02/22/2025 Concussion 02/22/2025 Diverticulosis 09/19/2024 Sensorineural hearing loss (SNHL) of both [...] 11/24/2022 Overview (05/15/2023): Dental: 02/18/23 Eye: Referred [facility] eye care 11/19/22 IZ: Up to date [...] Flomax 0.4 mg Gastroesophageal reflux disease 05/10/2012 Resolved Problems Problem Noted Date Diagnosed Date Resolved Date Calculus of gallbladder with out cholecystitis without obstruction 09/19/2024 02/22/2025 Encounters Date Type Department Care Team Description 02/22/2025 10:00 AM EDT Office Visit [address] [address] Deann Livingston MD Fall, initial encounter (Primary Dx); Neck pain; Chest pain, unspecified type; Acute pain of left shoulder; Mixed hyperlipidemia; Health care maintenance; Other acute back pain; Concussion without loss of consciousness, initial encounter 02/22/2025 Travel 02/14/[address] [address] Deann Livingston MD chart prep 02/11/2025 Patient Outreach [address] [address] Deann Livingston MD Pre-visit Planning (SDOH Screening negative and Tobacco screening negative) 01/02/[address] [address] Deann Livingston MD February recall from Last 3 Months Immunizations Name Administration [...] Mass Index 23.67 02/22/2025 10:00 AM EDT Plan of Treatment Upcoming Encounters Date Type Department Care Team (Late st Contact Info) Description 04/16/2025 9:00 AM EDT Office Visit [facility] [address] [place] [address] Deann Livingston MD [address] [place] [address] Health Maintenance Due Date Last Done Comments CT Colonography 1955 FIT DNA/Cologuard 1955 FIT 1955 FOBT 1955 Sigmoidoscopy 1955 Influenza Vaccine (#1) 2024 3, 08/10/2022, 07/23/2021, Additional history exists Dental Oral Exam 04/02/2025 10/02/2024, 02/18/2023 Dental Prophylaxis 04/02/2025 10/02/2024, 03/30/2023 Depression Screening 09/18/2025 09/18/2024, 09/18/20 Dental X-Ray: Bitewings 10/03/2025 10/02/2024, 02/18 SDOH Screening 02/11/2026 02/11/2025 Dental X-Ray: Full Mouth 02/19/2026 02/18/2023 Alcohol/Substance Use Screening 02/22/2026 02/22/2025 Tobacco Screening 02/22/2026 02/22/2025 DTaP/Tdap/Td Vaccines (2 - Td or Tdap) [...] 11:14 AM EDT Chest pain, unspecified type GROSS AND MICROSCOPIC LEVEL 3 Routine 12/13/2024 [...] Recently Relevant to Health Maintenance Results * ECG 12 lead (02/22/2025 11:14 AM EDT) Narrative Deann Livingston MD - 02/22/2025 11:14 AM EDT -EKG today HR 69 , Qtc 407, NSR , no ischemic findings us Deann Rendon MD ECG ORDERABLES F inal Result * Gross and Microscopic Level 3 (12/13/2024 8:03 AM EST) 12/13/2024 8:03 AM EST 12/13/2024 8:29 AM EST Maikel [facility] - 12/16/2024 5:33 PM EST ----- ------- Name: Charlie Alfaro ?Age/Sex: 69/M ? : 1955 Unit#: [id number] ?? Attend Dr: Ozzie Kuo MD ?Re12/13/24 ?Status: DEP SDC ? Location: HO.SSS ?Disch: ? ----- ------- SPEC : [id number] ?RECD: 12/13/24 ? STATUS: ??SOUT ? REQ NUM: [id number] ? YESSENIA: 12/13/24 ? SUBM DR: Ozzie Kuo MD ? ENTERED: ??12/13/24 ?SP TYPE: Surgical ? OTHR DR: Lin Eaton CONSTRUCTION SUPERVISOR ? ORDERED: ??Gross Micro L3 ? [...] measures up to 0.15 cm in thickness. ??Automatic Log Cut Off Sawyer sections are submitted in a cassette labeled A1 to include the margin of resection of the cystic duct. CEDS Copies To: ?? Lin Eaton CONSTRUCTION SUPERVISOR ?? [address] ?? [place] [address] ?? [phone] ?? Ozzie Kuo MD ?? [facility] [place] [facility] ?? [address] ?? [place] [address] ?? [phone] ?? [email or web address] ? CONTINUED ON NEXT PAGE ----- ------- Name: Charlie Alfaro ?Age/Sex: 69/M ? : 1955 Unit#: [id number] ?? Attend Dr: Ozzie Kuo MD ?Re12/13/24 ?Status: DEP MTC ? Location: HO.SSS ?Disch: ? ----- ------- SPEC : [id number] ?RECD: 12/13/24 ? STATUS: ??SOUT ? REQ NUM: [id number] ? YESSENIA: 12/13/24 ? SUBM DR: Ozzie Kuo MD ? ENTERED: ??12/13/24 ?SP TYPE: Surgical ? OTHR : Lin Eaton CONSTRUCTION SUPERVISOR ? ORDERED: ??Gross Micro L3 ? ----- ------- Signed (signature on file) Malina Rodríguez MD 12/16/24 2837 ? ----- ------- ? END OF REPORT ? us Generic External Data Provider LAB CYTOLOGY OLAF KIM Final Result Performing Organization Address [facility] Co de Phone Number [facility] [address] [place] [address] [phone] * Hepatitis C Antibody with Reflex to HCV, RNA, Quantitative, Real-Time PCR (09/18/2024 11:55 AM EST) Hepatitis C Antibody Nonreactive Nonreactive [facility] Comment:Antibodies to HCV no t detected; does not exclude early acuteHCV infection. Blood Venous blood specimen / Unknown 09/18/2024 11:55 AM EST 09/18/2024 1:19 PM EST us Deann Rendon MD LAB BLOOD ORDERAB LES Final Result Performing Organization Address [facility] Co de Phone Number [facility] [address] [place] [address] [phone] * (ABNORMAL) Lipid Panel, Standard (09/18/2024 11:55 AM EST) Triglycerides 71 <150 mg/dL [facility] Comment:Desirable Triglyceri de: less than 150 mg/dLBorderline High Triglyceride 150-199 mg/dLHigh Triglyceride: 200-499 mg/dLVery High Triglyceride: greater than or equal to 5OO mg/dL Cholesterol 181 <200 mg/dL [facility] Comment:Desirable Cholestero l: less than 200 mg/dLBorderline High Cholesterol: 200-239 mg/dLHigh Cholesterol: greater than 239 mg/dL LDL Cholesterol Calculated 109(H) <100 mg/dL [facility] Comment:Desirable LDL: less than 100 mg/dLNear Optimal/Above Optimal LDL: 110- 129 mg/dLBorderline High LDL: 130-159 mg/dLHigh LDL: 160-189 mg/dLVery High LDL: greater than or equal to 190 mg/dL HDL Cholesterol 58 >40 mg/dL [facility] Comment:Desirable HDL: great er than 40 mg/dL Note: This HDL assay may give artificially low results in patients with liver disease. Blood Venous blood specimen / Unknown 09/18/2024 11:55 AM EST 09/18/2024 1:19 PM EST Deann Rendon MD LAB BLOOD ORDERAB LES Final Result Performing Organization Address City/State/[facility] Co de Phone Number [facility] [address] [place] [phone] * (ABNORMAL) Colonoscopy (12/21/2022) Colonoscopy Abnormal( A) Normal Comment:Diverticulosis, poly p, hemorrhoids Historical Provider HEALTH MAINTENANCE Final Result from Last 3 Months or Most Recently Relevant to Health Maintenance Insurance [place] [address] [place] [id number] [facility] MEDICARE ADVANTAGE HMO DENTAL - [facility] PPO Care Teams Revenue Cycle Administrator Relationship Specialty Start Date End Date Deann Livingston MD [address] [place] [id number] PCP - General Internal Medicine 08/23/23
--- OUTSIDE RECORDS SUMMARY | 2025-02-25 09:00 | XMS_ITS | Encounter Summary ---
Author Organization [employer] Address [address] [facility] [address] [place] [address] Care Team Providers Care Aquatics Director Name Role Phone Deann Livingston MD Primary Care Pro vider Encounter Details Date Type Department Care Team (Latest Contact Info) Description 02/22/2025 Travel Social History Tobacco Use Types Packs/Day Years Used Date Smoking Tobacco: Never Passive Smoke Exposure: Never Smokeless Tobacco: Never Alcohol Use Standard [...] AM EDT documented as of this encounter Plan of Treatment Upcoming Encounters Date Type Department Care Team (Late st Contact Info) Description 04/16/2025 9:00 AM EDT Office Visit [facility] [address] [place] [phone] Deann Livingston MD [address] [place] [phone] documented as of this encounter Visit Diagnoses Not on filedocumented in this encounter Additional Health Concerns Assessment Noted Time PHQ-9 Depression Total Score: 0 09/18/20 24 10:56 AM EST documented as of this encounter Care Teams Aquatics Director Relationship Specialty Start Date End Date Deann Livingston MD [address] [place] [phone] PCP - General Internal Medicine 08/23/23 documented as of this encounter
--- OUTSIDE RECORDS SUMMARY | 2025-02-25 09:00 | XMS_ITS | Clinical Summary ---
Author Organization [employer] [facility] ity Address [address] [place] [address] Care Team Providers Care Direct Casting Operator Name Role Phone Unavailable Primary Care Provider [...]
== END 2025-02-25 08:34 | disposition home or self-care (01) ==
LOC: HO.HHCX 08:33
PROVIDERS: Visit Provider Student in an Organized Health Care Education/Training Program
DX: R07.9 Chest pain, unspecified (principal); M54.2 Cervicalgia; M25.512 Pain in left shoulder; Z91.81 History of falling
CPT/HCPCS: 71101; 72040; 73030

== ENCOUNTER → 2025-02-25 08:34 | Outpatient (BNV) | payer MEDICARE, SELFPAY | PROVIDERS: Visit Provider Radiology Diagnostic Radiology | DX: R07.89 Other chest pain (principal); M47.812 Spondylosis without myelopathy or radiculopathy, cervical region; M25.512 Pain in left shoulder; W19.XXXA Unspecified fall, initial encounter | CPT/HCPCS: 71101; 72040; 73030 ==

== ENCOUNTER 2025-03-05 05:40 | Day surgery (SDC) | payer MEDICARE, SELFPAY ==
--- OUTSIDE RECORDS SUMMARY | 2025-02-19 14:12 | XMS_ITS | Clinical Summary ---
Author Organization [facility] ity Address [address] [place] [address] Care Team Providers Care Metal Buffer Name Role Phone Unavailable Primary Care Provider [...] - 2023-2 5 season) 2024 Influenza Vaccine (Season Ended) 2025 RSV Immunization Adult Patie nts (1 - 1-dose 75+ series) 2029 HIB [...] age to complete this topic Meningococcal B Vaccine Aged Out No l onger eligible based on patient's age to complete this topic RSV Immunization Patients Un jason 20 months Aged Out No longer eligible b ased on patient's age to complete this topic Varicella Vaccines Aged Out No longer eligible based on patient's age to complete this topic
--- OUTSIDE RECORDS SUMMARY | 2025-02-19 14:12 | XMS_ITS | Encounter Summary ---
Author Organization [employer] Address [address] [place] [address] [place] [address] Care Team Providers Care Pharmacy Technology Instructor Name Role Phone Deann Livingston MD Primary Care Pro vider Reason for Visit * Reason Onset Date Comments chart prep 02/14/2025 Encounter Details Date Type Department Care Team ([facility] st Contact Info) Description 02/14/2025 Telephone [facility] MEDICINE [address] [place] [address] [phone] Deann Livingston MD [address] [place] [phone] chart prep Social History Tobacco Use Types Packs/Day Years [...] Access Answer Date Recorded Internet Access Q1 Yes 02/11/2025 Internet Access Q2 I do not want or need it 01/14 Sex and Gender Information Value Date Recorded Sex Assigned at Male 09/13/2022 10:19 AM EDT Legal Sex Male 10:19 AM EDT Gender Identity Male 09/13/2022 10:19 AM EDT Sexual Orientation Straight 09/13/2022 10 :19 AM EDT documented as of this encounter Miscellaneous Notes * Telephone Encounter - Katty Cortez MA - 02/14/2025 3:19 PM EDT Chart Prep Labs: done Images: not done Vaccines due: Updated Referrals: Completed Screenings: Not Applicable Overdue care gaps: Sbirt, Disability , and Oral Health documented in this encounter Plan of Treatment Upcoming Encounters Date Type Department Care Team (Late st Contact Info) Description 02/22/2025 10:00 AM EDT Office Visit [facility] MEDICINE [address] [place] [phone] Deann Livingston MD [address] [place] [phone] documented as of this encounter Visit Diagnoses Not on filedocumented in this encounter Additional Health Concerns Assessment Noted Time PHQ-9 Depression Total Score: 0 09/18/20 24 10:56 AM EST documented as of this encounter Care Teams Pharmacy Technology Instructor Relationship Specialty Start Date End Date Deann Livingston MD [address] [place] [phone] PCP - General Internal Medicine 08/23/23 documented as of this encounter
--- OUTSIDE RECORDS SUMMARY | 2025-02-19 14:12 | XMS_ITS | Clinical Summary ---
Author Organization [employer] Address [address] [facility] 7t [place] [address] Care Team Providers Care Scrap Bunch Maker Name Role Phone Deann Livingston MD Primary [...] 11/24/2022 Overview (05/15/2023): Dental: 02/18/23 Eye: Referred [facility] eye care 11/19/22 IZ: Up to date [...] Encounters Date Type Department Care Team Description 02/14/[address] [facility] MEDICINE [address] [place] [phone] Deann Livingston MD chart prep 02/11/[address] [facility] MEDICINE [address] [place] [address] Deann Livingston MD Pre-visit Planning (SDOH Screening negative and Tobacco screening negative) 01/02/[address] [facility] MEDICINE [address] [place] [address] Deann Livingston MD February recall 11/22/2024 9:30 AM EST Office Visit [facility]C ADULT DENTAL [address] [place] [address] Toni Jeffery from Last 3 Months Immunizations [...] your housing situation today? I have adelia sing 09/18/[address] you li [...] Description 02/22/2025 10:00 AM EDT Office Visit [facility] MEDICINE [address] [place] [address] Deann Livingston MD [address] [place] [address] Health Maintenance Due Date Last Done Comments CT Colonography 1954 FIT DNA/Cologuard 1955 FIT 1955 FOBT 1955 Sigmoidoscopy 1955 Alcohol/Substance Use Screening 1966 Influenza Vaccine (#1) 2024 , 08/10/2022, 07/23/2021, Additional history exists Dental Oral Exam 04/02/2025 10/02/2024, 02/18/2023 Dental Prophylaxis 04/02/2025 10/02/2024, 03/30/2023 Depression Screening 09/18/2025 09/18/2024, 09/18/20 Dental X-Ray: Bitewings 10/03/2025 10/02/2024, 02/18 Tobacco Screening 11/22/2025 11/22/2024 SDOH Screening 02/11/2026 02/11/2025 Dental X-Ray: Full Mouth 02/19/2026 02/18/2023 DTaP/Tdap/Td [...] SURF, POSTERIOR Routine 11/22/2024 9:30 AM EST Full PROPHYLAXIS - ADULT Routine 10/02/2024 10:00 [...] 8:03 AM EST 12/13/2024 8:29 AM EST Narrative [facility] - 12/16/2024 5:33 PM EST ----- ------- Name: Charlie Alfaro ?Age/Sex: 69/M ? : 1955 Unit#: [id number] ?? Attend Dr: Ozzie Kuo MD ?Re12/13/24 ?Status: DEP SDC ? Location: HO.SSS ?Disch: ? ----- ------- SPEC : [id number] ?RECD: 12/13/24 ? STATUS: ??SOUT ? REQ NUM: [id number] ? YESSENIA: 12/13/24 ? SUBM DR: Ozzie Kuo MD ? ENTERED: ??12/13/24 ?SP TYPE: Surgical ? OTHR DR: Lin Eaton MVA OPERATOR ? ORDERED: ??Gross Micro L3 ? Diagnosis [...] measures up to 0.15 cm in thickness. ??Sas Analyst sections are submitted in a cassette labeled A1 to include the margin of resection of the cystic duct. CEDS Copies To: ?? Lin Eaton ?? [address] ?? [place] [id number] ?? [phone] ?? Ozzie Kuo MD ?? [facility] Sur[facility] ?? [address] ?? [place] [id number] ?? [phone] ?? [email or web address] ? CONTINUED ON NEXT PAGE ----- ------- Name: Charlie Alfaro ?Age/Sex: 69/M ? : 1955 Unit#: [id number] ?? Attend Dr: Ozzie Kuo MD ?Re12/13/24 ?Status: DEP SDC ? Location: HO.SSS ?Disch: ? ----- ------- SPEC : [id number] ?RECD: 12/13/24 ? STATUS: ??SOUT ? REQ NUM: [id number] ? YESSENIA: 12/13/24 ? SUBM DR: Ozzie Kuo MD ? ENTERED: ??12/13/24 ?SP TYPE: Surgical ? OTHR DR: Lin EatonP ? ORDERED: ??Gross Micro L3 ? ----- ------- Signed (signature on file) Malina Rodríguez MD 12/16/24 1733 ? ----- ------- ? END OF REPORT ? us Generic External Data Provider LAB CYTOLOGY OLAF KIM Final Result Performing Organization Address [facility] de Phone Number [facility] [address] [place] [phone] * Hepatitis C Antibody with Reflex to HCV, RNA, Quantitative, Real-Time PCR (09/18/2024 11:55 AM EST) Hepatitis C Antibody Nonreactive Nonreactive [facility] Comment:Antibodies to HCV no t detected; does not exclude early acuteHCV infection. Blood Venous blood specimen / Unknown 09/18/2024 11:55 AM EST 09/18/2024 1:19 PM EST us Deann Rendon MD LAB BLOOD ORDERAB LES Final Result Performing Organization Address [facility] Co de Phone Number [facility] [address] [place] [phone] * (ABNORMAL) Lipid Panel, Standard (09/18/2024 11:55 AM EST) Triglycerides 71 <150 mg/dL [facility] Comment:Desirable Triglyceri de: less than 150 mg/dLBorderline High Triglyceride 150-199 mg/dLHigh Triglyceride: 200-499 mg/dLVery High Triglyceride: greater than or equal to 5OO mg/dL Cholesterol 181 <200 mg/dL [facility] Comment:Desirable Cholestero l: less than 200 mg/dLBorderline High Cholesterol: 200-239 mg/dLHigh Cholesterol: greater than 239 mg/dL LDL Cholesterol Calculated 109(H) <100 mg/dL [facility] Comment:Desirable LDL: less than 100 mg/dLNear Optimal/Above Optimal LDL: 110- 129 mg/dLBorderline High LDL: 130-159 mg/dLHigh LDL: 160-189 mg/dLVery High LDL: greater than or equal to 190 mg/dL HDL Cholesterol 58 >40 mg/dL [facility] Comment:Desirable HDL: great er than 40 mg/dL Note: This HDL assay may give artificially low results in patients with liver disease. Blood Venous blood specimen / Unknown 09/18/2024 11:55 AM EST 09/18/2024 1:19 PM EST us Deann Rendon MD LAB BLOOD ORDERAB LES Final Result [facility] [address] [place] [phone] * (ABNORMAL) Hm Colonoscopy (12/21/2022) Colonoscopy Abnormal( A) Normal Comment:Diverticulosis, poly p, hemorrhoids Historical Provider HEALTH MAINTENANCE Final Result from Last 3 Months or Most Recently Relevant to Health Maintenance Insurance [place] [id number] [facility] MEDICARE ADVANTAGE HMO DENTAL - [facility] PPO Care Teams Scrap Bunch Maker Relationship Specialty Start Date End Date Deann Livingston MD [address] [place] [phone] PCP - General Internal Medicine 08/23/23
[2025-02-28 12:15] VITALS: BMI 23.5
--- NOTE | 2025-02-28 15:24 | P.CONAN_ITS ---
Documented by User: Callie Singh NP 02/28/25 15:25 HPI - Anesthesia Eval Consult details Narrative: 69yo M for Colonoscopy with possible Polypectomy PMFSH Active Problems Active Problems: All Active Problems Status post laparoscopic cholecystectomy (Acute) Recurrent biliary colic (Acute) Symptomatic cholelithiasis (Acute) Nocturia more than twice per night (Acute) BPH w urinary obs/LUTS (Acute) Rectal bleeding (Acute) Colon cancer screening (Acute) Past Medical History Medical History Rectal bleeding GERD (gastroesophageal reflux disease) H/O urinary frequency Colon cancer screening Family History Family History Father Prostate cancer Sister Liver cancer Family history of problems with anesthesia: No Surgical History Surgical History Hx laparoscopic cholecystectomy (12/13/24) History of prostate surgery Hx of colonoscopy History of Problems with Anesthesia: No Social History Social History Are you a primary animal caretaker supervisor to a significant other at home: No Do you presently have visiting nurse or other home services: No Alcohol intake: current Alcohol intake frequency: holidays/special occasions only Patient Tobacco Use Status: Never used Tobacco Use of substances other than those prescribed or required for medical reasons: No Have you been hit, kicked, punched, or otherwise hurt by someone within the past year? If so, by whom?: No Are you DNR?: No Advance Directives: No Advance Directives Information Provided: Yes Poor oral hygiene: No Meds Allergies Allergy/AdvReac Type Severity Reaction Status Date / Time No Known Allergies Allergy Verified 03/05/25 06:11 Home Medications ?Medication ?Instructions ?Recorded ?Confirmed ?Last Taken ?Type multivitamin 1 tab PO DAILY 10/12/21 03/05/25 Unknown History sennosides 8.6 mg tablet (Senna 17.2 mg PO DAILY PRN constipation 10/12/21 03/05/25 Unknown History Laxative) rosuvastatin 10 mg tablet 10 mg PO DAILY 02/23/23 03/05/25 Unknown History Exam Height,Weight and Vital Signs: Height 5 ft 3 in Weight 60.101 kg Assessment and Plan Assessment Anesthesia Assessment: Chart Reviewed Final Anesthetic Review Family History of Problems with Anesthesia: No History of Problems with Anesthesia: No Documented by User: Barak Queen MD 03/05/25 07:43 PMFSH Past Medical History Medical History Rectal bleeding GERD (gastroesophageal reflux disease) H/O urinary frequency Colon cancer screening Family History Family History Father Prostate cancer Sister Liver cancer Surgical History Surgical History Hx laparoscopic cholecystectomy (12/13/24) History of prostate surgery Hx of colonoscopy Social History Social History Are you a primary animal caretaker supervisor to a significant other at home: No Do you presently have visiting nurse or other home services: No Alcohol intake: current Alcohol intake frequency: holidays/special occasions only Patient Tobacco Use Status: Never used Tobacco Use of substances other than those prescribed or required for medical reasons: No Have you been hit, kicked, punched, or otherwise hurt by someone within the past year? If so, by whom?: No Are you DNR?: No Advance Directives: No Advance Directives Information Provided: Yes Poor oral hygiene: No Meds Allergies Allergy/AdvReac Type Severity Reaction Status Date / Time No Known Allergies Allergy Verified 03/05/25 06:11 Home Medications ?Medication ?Instructions ?Recorded ?Confirmed ?Last Taken ?Type multivitamin 1 tab PO DAILY 10/12/21 03/05/25 Unknown History sennosides 8.6 mg tablet (Senna 17.2 mg PO DAILY PRN constipation 10/12/21 03/05/25 Unknown History Laxative) rosuvastatin 10 mg tablet 10 mg PO DAILY 02/23/23 03/05/25 Unknown History Exam Airway Mallampati Class: I TM Dist: >3cm Neck ROM: Full Loose/Missing/Broken Teeth: No Heart: ok Lungs: ok Assessment and Plan Assessment Anesthesia Assessment: Anesthesia Plan Discussed Final Anesthetic Review NPO: Yes ASA Class: II Final Preanesthetic Review: No Changes in Pt Med Stat, Meds/Allgs Chart Reviewed, Consent Obtained/Reviewed and Anes Risks/Benef Reviewed Patient Risk: Low Procedure Risk: Low Anesthetic Plan Anesthetic Plan: MAC: and Agree w/ Assess. and Plan Disposition: Standard PACU
[2025-03-05 06:17] VITALS: BP 134/86; PULSE 83; RESP 14; TEMP 36.6; O2SAT 96; BMI 23.9
[2025-03-05] MEDS: Lactated Ringers 1,000 ML 100 ML IVCONT (06:43)
--- NOTE | 2025-03-05 07:18 | MHC.SHP ---
Pre-Procedural Eval Section A - 24 Hr Update-Section A only Date of Service: 03/05/25 Section B - Complete if H&P > 30 days Chief Complaint: SCREENING Details of Present Illness: Had suboptimal bowel prep in 2021. For repeat colonoscopy today Relevant Family History (Specify if Yes): No Relevant Social History: None Present Medications: see Short Stay Collaborative assessment Medical History: Significant History (BPH) Allergies: Allergies Allergy/AdvReac Type Severity Reaction Status Date / Time No Known Allergies Allergy Verified 03/05/25 06:11 Review of Systems Sugical H&P ROS: Negative: Constitution, Cardiovascular and Respiratory and Yes, Specify: Genitourinary (Nocturia) Exam Surgical H&P Exam: Normal: Heart, Normal: Lungs and Normal: Abdomen Plan Diagnosis/Plan: Unchanged I have reviewed the history and physical and performed a pertinent physical examination on my patient. No changes have occurred unless specified. Time Spent With Patient Time: Total time managing care of this patient today ____ minutes.
--- NOTE | 2025-03-05 08:02 | HO.OPN-COLON ---
Colonoscopy Operative Note Operative Note Date of Service: 03/05/25 Narrative: Preop diagnosis: Colon cancer screening Postop diagnosis: 1. Severe diverticulosis of the sigmoid 2. 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 He understood the technique of the planned procedure as well as the risks, benefits, and alternatives The patient was brought to the operating room and placed in left lateral decubitus position under monitored anesthesia care. A surgical time-out was done. A full digital rectal exam was done and this did not reveal any significant anal lesions. The tip of the Olympus colonoscope was gently introduced through the anal orifice advanced with insufflation all the way to the cecum. The cecum was intubated. The cecum was identified by visualization of the ileocecal valve as well as the appendiceal orifice. The cecal mucosa was unremarkable. The scope was gradually withdrawn with careful examination of the entire colonic mucosa being done with scope withdrawal. There was note of diffuse, miliary type mucosal nodules, whitish, about 1-2 mm, throughout the entire right colon and transverse colon. Biopsies of these of these were done using cold forceps. There was note of severe diverticulosis in the sigmoid. The patient had adequate bowel prep so it was unlikely that any lesion may have been missed. The rectum was reached and there were no lesions seen. The anal canal was unremarkable. The scope was then withdrawn completely with desufflation The patient tolerated procedure well. There were no immediate complications. He likely falls at average risk for colon cancer so his next colonoscopy may be in the next 10 years
[2025-03-05 08:05] VITALS: BP 93/58; PULSE 71; RESP 15; TEMP 36.1; O2SAT 96
[2025-03-05 08:20] VITALS: BP 125/75; PULSE 67; RESP 18; TEMP 36.1; O2SAT 98
== END 2025-03-05 09:48 | disposition home or self-care (01) ==
PROVIDERS: Visit Provider Surgery
PROC: 0DBE8ZZ Excision of Large Intestine, Via Natural or Artificial Opening Endoscopic (ICD-10-PCS; CPT 45380; principal; 2025-03-05 07:30)
DX: Z12.11 Encounter for screening for malignant neoplasm of colon (principal); K57.30 Diverticulosis of large intestine without perforation or abscess without bleeding; K63.89 Other specified diseases of intestine; K52.9 Noninfective gastroenteritis and colitis, unspecified; K21.9 Gastro-esophageal reflux disease without esophagitis; Z79.899 Other long term (current) drug therapy
CPT/HCPCS: 45380; 88305; J2003; J2704; J3010

== ENCOUNTER → 2025-03-05 05:40 | Outpatient (BNV) | payer MEDICARE, SELFPAY | PROVIDERS: Visit Provider Surgery | DX: Z12.11 Encounter for screening for malignant neoplasm of colon (principal); K57.90 Diverticulosis of intestine, part unspecified, without perforation or abscess without bleeding | CPT/HCPCS: 45380 ==

== ENCOUNTER 2025-03-18 11:03 | Outpatient (AMB) | payer MEDICARE, SELFPAY ==
[2025-03-18 11:11] VITALS: BP 139/73; PULSE 93; O2SAT 98; BMI 23.7
--- NOTE | 2025-03-18 11:11 | A.OFFVIS_ITS ---
Vital Signs 03/18/25 11:11 Height 5 ft 3 in Weight 134 lb 0.657 oz BMI 23.7 BP 139/73 Blood Pressure Location Rt brachial Position Sitting Pulse 93 Pulse Source Pulse Oximeter Pulse Oximetry (%) 98 Oxygen Delivery Method Room Air Intake Visit Reasons: S/P colonoscopy Intake Note: Patient here s/p Colonoscopy. Reports procedure went well. Patient c/o: None Allergies No Known Allergies Allergy (Verified 03/18/25 11:14) Medication List - Last Reconciled 03/18/25 by Bj Yañez MD multivitamin 1 tab PO DAILY HPI HPI S/P colonoscopy: Details: He underwent colonoscopy for screening last 03/05/2025. He tolerated the procedure well. He currently denies significant complaints. PFSH Medical History Rectal bleeding GERD (gastroesophageal reflux disease) H/O urinary frequency Colon cancer screening Surgical History Hx of colonoscopy (03/05/25) Hx laparoscopic cholecystectomy (12/13/24) History of prostate surgery Hx of colonoscopy Family History Father Prostate cancer Sister Liver cancer Social History Are you a primary respiratory care instructor to a significant other at home: No Do you presently have visiting nurse or other home services: No Alcohol intake: current Alcohol intake frequency: holidays/special occasions only Patient Tobacco Use Status: Never used Tobacco Review of Systems Const Denies chills and Denies fever(s) Card Denies chest pain, Denies dyspnea and Denies dyspnea on exertion Resp Denies cough, Denies dyspnea and Denies dyspnea on exertion GI Denies hematochezia and Denies change in bowel habits Denies hematuria and Denies difficulty urinating Musc Denies back pain and Denies limited range of motion Neuro Denies focal weakness and Denies convulsions Psych Denies depression and Denies mood swings Physical Exam Vital Signs: Last Vital Signs Pulse 93 03/18/25 11:11 BP 139/73 03/18/25 11:11 Pulse Ox 98 03/18/25 11:11 Oxygen Delivery Method Room Air 03/18/25 11:11 BMI result Body Mass Index 23.7 Const General: comfortable and no acute distress Resp Effort & Inspection: normal respiratory effort GI Palpation (GI): Soft to palpation, not firm and nontender Assessment & Plan Assessment & Plan (1) Colon cancer screening: Code(s): Z12.11 - Encounter for screening for malignant neoplasm of colon Category: Medical Plan: Status post colonoscopy. Colonoscopy findings include diverticulosis and small miliary type nodules scattered throughout the colon. 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 He actually is asymptomatic and denies any GI complaints. I will inform the primary care physician that if parasitic infestation inspected, his stool should be tested for ova and parasites. Otherwise his next colonoscopy may be in the next 10 years. Coding Level of Care Code Est Pt Level 2 (32727) Diagnoses Colon cancer screening Z12.11
--- OUTSIDE RECORDS SUMMARY | 2025-03-18 12:49 | XMS_ITS | Clinical Summary ---
Author Organization [employer] Address [address] [facility] [address] [place] [address] Care Team Providers Care Crisis Clinician Name Role Phone Deann Livingston MD Primary [...] by MD. 30 patch 02/23/20 25 Active rosuvastatin (Crestor) 10 MG tablet Take 1 tablet (10 mg) by mouth in the morning. 90 tablet 1 08/23/20 23 025 Discontinu ed(Other) cyclobenzaprine (Flexeril) 5 MG tablet Take 1 tablet (5 mg) by mouth at bedtime for 7 days. 7 tablet 02/23/20 25 025 Active Problems Problem Noted Date Diagnosed Date [...] 11/24/2022 Overview (05/15/2023): Dental: 02/18/23 Eye: Referred [facility] eye care 11/19/22 IZ: Up to [...] Encounters Date Type Department Care Team Description 03/05/2025 Orders Only GENERIC EXTERNAL DATA DEPARTMENT Provider, Generic External Data 02/25/[address] [address] Sury Michaels, RN Results 02/25/2025 Orders Only [address] [address] Deann Livingston MD 02/22/2025 10:00 AM EDT Office Visit [address] [address] Deann Livingston MD Fall, initial encounter (Primary Dx); Neck pain; Chest pain, unspecified type; Acute pain of left shoulder; Mixed hyperlipidemia; Health care maintenance; Other acute back pain; Concussion without loss of consciousness, initial encounter 02/22/2025 Travel 02/14/[address] [address] Deann Livingston MD chart prep 02/11/2025 Patient Outreach [address] [address] Deann Livingston MD Pre-visit Planning (SDOH Screening negative and Tobacco screening negative) 01/02/[address] [address] Deann Livingston MD February recall from Last [...] your housing situation today? I have adelia nicolasa 09/18/[address] you li [...] Description 04/16/2025 9:00 AM EDT Office Visit [facility] [address] [place] [phone] Deann Livingston MD [address], [place] [phone] Health Maintenance Due Date Last Done Comments CT Colonography 1955 FIT DNA/Cologuard 1955 FIT 1955 FOBT 1955 Sigmoidoscopy 1955 Influenza Vaccine (#1) 2024 , 08/10/2022, 07/23/2021, [...] Procedure Name Priority Date/Time Associated Diagnosis Comments HEMATOXYLIN AND EOSIN STAIN Routine 03/05/2025 7:48 AM EDT XR CERVICAL SPINE 3V Routine 02/25/2025 8:34 AM EDT XR RIBS 3 VIEWS LEFT W CHEST Routine 02/25/2025 8:34 AM EDT XR SHOULDER 2+ VIEWS LEFT Routine 02/25/2025 8:34 AM EDT Fall, initial encounter Acute pain of left shoulder ECG 12-LEAD Routine 02/22/2025 11:14 AM EDT Chest pain, unspecified type Full PROPHYLAXIS - ADULT Routine 10/02/2024 10:00 [...] Recently Relevant to Health Maintenance Results * Hematoxylin and Eosin Stain (03/05/2025 7:48 AM EDT) 03/05/2025 7:48 AM EDT 03/05/2025 8:29 AM EDT [facility] - 03/08/2025 10:50 AM EDT ----- ------- Name: Charlie Alfaro ?Age/Sex: 69/M ? : 1955 Unit#: [id number] ?? Attend Dr: Bj Yañez MD ?Re03/05/25 ?Status: DEP SDC ? Location: HO.SSS ?Disch: ? ----- ------- SPEC : [id number] ? RECD: 03/05/25 ? STATUS: ??SOUT ? REQ NUM: [id number] ? YESSENIA: 03/05/25 ? SUBM DR: Bj Yañez MD ? ENTERED: ??03/05/25 ?SP TYPE: Surgical ? OTHR DR: [facility] ? ORDERED: ??HE Stain/3, Gross Micro L4 ? Diagnosis ?? Colon, nodule, biopsy: ??Active colitis with prominent eosinophils and focal foreign ?? material. ??See comment. ? 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 ??There is a ?? small fragment of foreign material within an eosinophilic abscess, which raises suspicion ?? for parasites (e.g. Strongyloides, et al.). ??However, the differential is broad and also ?? includes medication, toxin, other immune (e.g. Churg Kaley), vasculitis and neoplasms ?? (e.g. lymphoma). ??Please correlate with clinical findings. ??If a parasitic infestation is ?? suspected, serologic and/or stool O P testing may be helpful. ?Clinical History Pre-Op Dx: ??Screening Post-Op Dx: Severe diverticulosis, mucosa nodules ?Microscopic Description Microscopic sections reviewed. ? Material Received ?? Nodule in colon ? Gross Description Received in formalin labeled ?nodule in colon? are 4 osuna and osuna-pink irregular and rectangular tissue fragments ranging from minute to 0.45 cm, submitted in toto in a cassette labeled A. ??CEDS This case was reviewed intradepartmentally. Copies To: ?? [facility] ?? [address] ?? [place] [address] ? Bj Yañez MD ?? [facility] ?? [address] ?? [place] [address] ?? [phone] ? CONTINUED ON NEXT PAGE ----- ------- Name: Charlie Alfaro ?Age/Sex: 69/M ? : 1955 Unit#: [id number] ?? Attend Dr: Bj Yañez MD ?Re03/05/25 ?Status: DEP SDC ? Location: HO.SSS ?Disch: ? ----- ------- SPEC : [id number] ? RECD: 03/05/25 ? STATUS: ??SOUT ? REQ NUM: [id number] ? YESSENIA: 03/05/25 ? SUBM DR: Bj Yañez MD ? ENTERED: ??03/05/25 ?SP TYPE: Surgical ? OTHR DR: [facility] ? ORDERED: ??HE Stain/3, Gross Micro L4 ? ----- ------- Signed (signature on file) Jn Britton MD 03/08/25 1050 ? ----- ------- ? END OF REPORT ? us Generic External Data Provider LAB BLOOD ORDERAB LES Final Result [facility] [address] [place] [phone] * XR CERVICAL SPINE 3V (02/25/2025 8:34 AM EDT) Anatomical Region Laterality Modality Abdomen Radiographic Jennifer ging 02/25/2025 8:34 AM EDT Narrative 02/25/2025 9:44 AM EDT ?[facility] ?[address] ?[place] [id number] ?XRay Report ? Signed ? Patient: Dominic,Charlie ?MR#: [id number] ?? [id number] ? : 1955 ?Acct:[id number] ? Age/Sex: 69 / M ?ADM Date: 04/14/25 ? Loc: HO.HHCX ? Attending : Deann Rendon MD ? Ordering Physician: Deann Livingston MD ?? Date of Service: 02/25/25 ?? Procedure(s): XR cervical spine 3V ?? Accession Number(s): [id number] ? cc: Deann Livingston MD ? EXAMINATION: ?? XR CERVICAL SPINE ? CLINICAL INFORMATION: ?? PAIN; fall 3 weeks prior. Left neck pain. ? COMPARISON: ?? None available. ? TECHNIQUE: ?? 3 views of the cervical spine were obtained. ? FINDINGS: ?? Normal lordosis. No scoliosis. ?? No fracture, compression deformity, or suspicious bone lesion. ?? C1-2 articulation and craniocervical junction are intact and aligned. ?? There is a 2 mm anterolisthesis C5 on C6. Alignment is otherwise ?? anatomic. ? Normal facet alignment. Mild to moderate multilevel degenerative facet ?? changes bilaterally. ?? Moderate disc space degeneration present, most significant at C6-7. ?? No bony neural foraminal narrowing on either side. ? The pre and paravertebral soft tissues are normal. The lung apices are ?? clear. ? XR/XR cervical spine 3V ?? IMPRESSION: ?? 1. No acute bony abnormalities. ?? 2. Mild to moderate diffuse spondylosis. ? Electronically signed by: ??Yonis Hummel MD ??02/25/2025 09:41 AM EDT RP ? Dictated By: ?Yonis Hummel MD ? Signed By: ?<Electronically signed by Yonis Hummel MD in OV> ?02/25/25 0941 ? DD/ 0834 ? TD/TT: 02/25/25 0900 ? Polisher And Sander: ? Procedure Note Laya, Image - 02/25/[address] [address] XRay Report Signed Patient: Fatuma Alfaro#: [id number] : 5Acct:[id number] Age/Sex: 69 / MADM Date: 02/25/25 Loc: HO.HHCX Attending Dr: Deann Rendon MD Ordering Physician: Deann Livingston MD Date of Service: 02/25/25 Procedure(s): XR cervical spine 3V Accession Number(s): [id number] cc: Deann Livingston MD EXAMINATION: XR CERVICAL SPINE CLINICAL INFORMATION: PAIN; fall 3 weeks prior. Left neck pain. COMPARISON: None available. TECHNIQUE: 3 views of the cervical spine were obtained. FINDINGS: Normal lordosis. No scoliosis. No fracture, compression deformity, or suspicious bone lesion. C1-2 articulation and craniocervical junction are intact and aligned. There is a 2 mm anterolisthesis C5 on C6. Alignment is otherwise anatomic. Normal facet alignment. Mild to moderate multilevel degenerative facet changes bilaterally. Moderate disc space degeneration present, most significant at C6-7. No bony neural foraminal narrowing on either side. The pre and paravertebral soft tissues are normal. The lung apices are clear. XR/XR cervical spine 3V IMPRESSION: 1. No acute bony abnormalities. 2. Mild to moderate diffuse spondylosis. Electronically signed by: Yonis Hummel MD 02/25/2025 09:41 AM EDT Dictated By: Yonis Hummel MD Signed By: <Electronically signed by Yonis Hummel MD in OV> 02/25/25 0941 DD/ 0834 TD/TT: 02/25/25 0900 Polisher And Sander: Deann Rendon MD IMG XR PROCEDURES Edited Result - Final * XR Ribs 3 Views Left w/ Chest (02/25/2025 8:34 AM EDT) Anatomical Region Laterality Modality Radiographic Jennifer ging 02/25/2025 8:34 AM EDT Narrative 02/25/2025 9:36 AM EDT ?[facility] ?[address] ?[place] [address] ?XRay Report ? Signed ? Patient: Dominic,Charlie ?MR#: [id number] ?? [id number] ? : 1955 ?Acct:[id number] ? Age/Sex: 69 / M ?ADM Date: 04/14/25 ? Loc: HO.HHCX ? Attending : Deann Rendon MD ? Ordering Physician: Deann Livingston MD ?? Date of Service: 02/25/25 ?? Procedure(s): XR ribs LT min 3V w CXR1V ?? Accession Number(s): [id number] ? cc: Deann Livingston MD ? EXAMINATION: ?? XR RIBS, LEFT ? CLINICAL INFORMATION: ?? PAIN ? COMPARISON: ?? No priors available. ? TECHNIQUE: ?? PA view of the chest, and 3 views of the left ribs were obtained. ? FINDINGS: ?? Lungs are clear. No consolidation, pneumothorax, or pleural effusion. ?? The cardiomediastinal silhouette and pulmonary vasculature are normal. ? Osseous structures are unremarkable. Ribs are intact. No fractures are ?? identified. ? XR/XR ribs LT min 3V w CXR1V ?? IMPRESSION: ?? Unremarkable examination. ? Electronically signed by: ??Yonis Hummel MD ??02/25/2025 09:33 AM EDT RP ? Dictated By: ?Yonis Hummel MD ? Signed By: ?<Electronically signed by Yonis Hummel MD in OV> ?02/25/25 0933 ? DD/ 0834 ? TD/TT: 02/25/25 0900 ? Polisher And Sander: ? Procedure Note Alisha Asif - 02/25/[address] [address] XRay Report Signed Patient: Fatuma Alfaro#: [id number] : 5Acct:[id number] Age/Sex: 69 / MADM Date: 02/25/25 Loc: HO.HHCX Attending Dr: Deann Rendon MD Ordering Physician: Deann Livingston MD Date of Service: 02/25/25 Procedure(s): XR ribs LT min 3V w CXR1V Accession Number(s): [id number] cc: Deann Livingston MD EXAMINATION: XR RIBS, LEFT CLINICAL INFORMATION: PAIN COMPARISON: No priors available. TECHNIQUE: PA view of the chest, and 3 views of the left ribs were obtained. FINDINGS: Lungs are clear. No consolidation, pneumothorax, or pleural effusion. The cardiomediastinal silhouette and pulmonary vasculature are normal. Osseous structures are unremarkable. Ribs are intact. No fractures are identified. XR/XR ribs LT min 3V w CXR1V IMPRESSION: Unremarkable examination. Electronically signed by: Yonis Hummel MD 02/25/2025 09:33 AM EDT RP Dictated By: Yonis Hummel MD Signed By: <Electronically signed by Yonis Hummel MD in OV> 02/25/2533 DD/ 0834 TD/TT: 02/25/25 0900 Polisher And Sander: Deann Rendon MD IMG XR PROCEDURES Edited Result - Final * XR Shoulder 2+ Views Left (02/25/2025 8:34 AM EDT) Anatomical Region Laterality Modality Upper Extremities, Shoulder Left Radi ographic Imaging 02/25/2025 8:34 AM EDT Narrative 02/25/2025 9:32 AM EDT ?[facility] ?[address] ?[place] [address] ?XRay Report ? Signed ? Patient: Dominic,Charlie ?MR#: [id number] ?? [id number] ? : 1955 ?Acct:[id number] ? Age/Sex: 69 / M ?ADM Date: 02/25/25 ? Loc: HO.HHCX ? Attending Dr: Deann Rendon MD ? Ordering Physician: Deann Livingston MD ?? Date of Service: 02/25/25 ?? Procedure(s): XR shoulder LT min 2V ?? Accession Number(s): [id number] ? cc: Deann Livingston MD ? EXAMINATION: ?? XR SHOULDER, LEFT ? CLINICAL INFORMATION: ?? PAIN ; fall 3 weeks prior. Left shoulder pain. ? COMPARISON: ?? None available. ? TECHNIQUE: ?? AP external rotation, Grashey, scapular Y, and axillary views of the ?? left shoulder. ? FINDINGS: ?? Normal bone mineralization. No fracture, dislocation, or suspicious ?? bone lesion. ?? The glenohumeral joint is normal. ?? AC joint shows mild subluxation and mild spurring. A low to moderate ?? grade AC injury is a consideration. ?? There is a type III acromion. No undersurface spurring. ?? The subacromial space is preserved. ? Remainder of the soft tissue and bony structures appear normal. ? XR/XR shoulder LT min 2V ?? IMPRESSION: ?? 1. No fracture or gross dislocation. ?? 2. Mild subluxation of the AC joint, indicating a possible low to ?? moderate grade AC joint injury. Correlate with point tenderness. ? Electronically signed by: ??Yonis Hummel MD ??02/25/2025 09:30 AM EDT RP ?? Workstation: [id number] ? Dictated By: ?Yonis Hummel MD ? Signed By: ?<Electronically signed by Yonis Hummel MD in OV> ?02/25/25 0930 ? DD/ 0834 ? TD/TT: 02/25/25 0900 ? Polisher And Sander: ? Procedure Note Donasiyainterpreter, Image - 02/25/2025 [place] [address] XRay Report Signed Patient: Fatuma Alfaro#: [id number] : 5Acct:[id number] Age/Sex: 69 / MADM Date: 02/25/25 Loc: HO.HHCX Attending Dr: Deann Rendon MD Ordering Physician: Deann Livingston MD Date of Service: 02/25/25 Procedure(s): XR shoulder LT min 2V Accession Number(s): [id number] cc: Deann Livingston MD EXAMINATION: XR SHOULDER, LEFT CLINICAL INFORMATION: PAIN ; fall 3 weeks prior. Left shoulder pain. COMPARISON: None available. TECHNIQUE: AP external rotation, Grashey, scapular Y, and axillary views of the left shoulder. FINDINGS: Normal bone mineralization. No fracture, dislocation, or suspicious bone lesion. The glenohumeral joint is normal. AC joint shows mild subluxation and mild spurring. A low to moderate grade AC injury is a consideration. There is a type III acromion. No undersurface spurring. The subacromial space is preserved. Remainder of the soft tissue and bony structures appear normal. XR/XR shoulder LT min 2V IMPRESSION: 1. No fracture or gross dislocation. 2. Mild subluxation of the AC joint, indicating a possible low to moderate grade AC joint injury. Correlate with point tenderness. Electronically signed by: Yonis Hummel MD 02/25/2025 09:30 AM EDT Dictated By: Yonis Hummel MD Signed By: <Electronically signed by Yonis Hummel MD in OV> 02/25/25 0930 DD/ 0834 TD/TT: 02/25/25 0900 Polisher And Sander: us Deann Rendon MD IMG XR PROCEDURES Edited Result - Final * ECG 12 lead (02/22/2025 11:14 AM EDT) Narrative Deann Livingston MD - 02/22/2025 11:14 AM EDT -EKG today HR 69 , Qtc 407, NSR , no ischemic findings us Deann Rendon MD ECG ORDERABLES F inal Result * Hepatitis C Antibody with Reflex to HCV, RNA, Quantitative, Real-Time PCR (09/18/2024 11:55 AM EST) Hepatitis C Antibody Nonreactive Nonreactive [facility] Comment:Antibodies to HCV no t detected; does not exclude early acuteHCV infection. Blood Venous blood specimen / Unknown 09/18/2024 11:55 AM EST 09/18/2024 1:19 PM EST us Deann Rendon MD LAB BLOOD ORDERAB LES Final Result [facility] [address] [place] [phone] * (ABNORMAL) Lipid Panel, Standard (09/18/2024 11:55 AM EST) Triglycerides 71 <150 mg/dL [facility] Comment:Desirable Triglyceri de: less than 150 mg/dLBorderline High Triglyceride 150-199 mg/dLHigh Triglyceride: 200-499 mg/dLVery High Triglyceride: greater than or equal to 5OO mg/dL Cholesterol 181 <200 mg/dL [facility] Comment:Desirable Cholestero l: less than 200 mg/dLBorderline High Cholesterol: 200-239 mg/dLHigh Cholesterol: greater than 239 mg/dL LDL Cholesterol Calculated 109(H) <100 mg/dL [facility] Comment:Desirable LDL: less than 100 mg/dLNear Optimal/Above Optimal LDL: 110- 129 mg/dLBorderline High LDL: 130-159 mg/dLHigh LDL: 160-189 mg/dLVery High LDL: greater than or equal to 190 mg/dL HDL Cholesterol 58 >40 mg/dL [facility] Comment:Desirable HDL: great er than 40 mg/dL Note: This HDL assay may give artificially low results in patients with liver disease. Blood Venous blood specimen / Unknown 09/18/2024 11:55 AM EST 09/18/2024 1:19 PM EST Deann Rendon MD LAB BLOOD ORDERAB LES Final Result [facility] [address] [place] [phone] * (ABNORMAL) Colonoscopy (12/21/2022) Colonoscopy Abnormal( A) Normal Comment:Diverticulosis, poly p, hemorrhoids Historical Provider HEALTH MAINTENANCE Final Result from Last 3 Months or Most Recently Relevant to Health Maintenance Insurance MEDICARE [address] [place] [address] [place] [id number] [facility] MEDICARE ADVANTAGE HMO DENTAL - [facility] PPO Care Teams Crisis Clinician Relationship Specialty Start Date End Date Deann Livingston MD [address] [place] [phone] PCP - General Internal Medicine 08/23/23
--- OUTSIDE RECORDS SUMMARY | 2025-03-18 12:49 | XMS_ITS | Clinical Summary ---
Author Organization [facility] ity Address [address] [place] [address] Care Team Providers Care Mechanical Assembly Technician Name Role Phone Unavailable Primary Care Provider [...] complete this topic RSV Immunization Patients Un ajson 20 months Aged Out No longer eligible b ased on patient's age to complete this topic Varicella Vaccines Aged Out No longer eligible based on patient's age to complete this topic
== END 2025-03-18 11:38 | disposition home or self-care (01) ==
LOC: HO.HGS 11:04
PROVIDERS: PCP Registered Nurse; Visit Provider Surgery
DX: Z12.11 Encounter for screening for malignant neoplasm of colon (principal)
CPT/HCPCS: 99212

== ENCOUNTER → 2025-03-18 11:03 | Outpatient (BNVA) | payer MEDICARE, SELFPAY | PROVIDERS: PCP Registered Nurse; Visit Provider Surgery | DX: K57.90 Diverticulosis of intestine, part unspecified, without perforation or abscess without bleeding (principal); K92.89 Other specified diseases of the digestive system; Z98.890 Other specified postprocedural states | CPT/HCPCS: 99212 ==